=== PATIENT | male | born 1970 | race Caucasian/White ===

== ENCOUNTER 2016-03-09 09:45 | Emergency (ER) | payer SELFPAY ==
[~2016-03-09] VITALS: Ht 165.1 cm; Wt 69.4 kg
[~2016-03-09 09:45] MED LIST: ACETAMINOPHEN-1 EAC1 ORAL; ALBUTEROL SULF8.5 GM INH; ANUSOL HC1 SUPP RECTAL; ANUSOL-HC25 MG RC; ANUSOL-HC25 MG RECTAL; ATARAX25 MG ORAL; AUGMENTIN 875-1 EAC1 ORAL; BACTRIM DS TAB1 EAC1 ORAL; CEPHALEXIN500 MG ORAL; KEFLEX500 MG ORAL; KEFLEX500 MG PO; LEVAQUIN500 MG ORAL; LEVAQUIN500 MG PO; NKM; NORCO 5-325 TA1 EACH ORAL; NORCO 5/3251 TAB ORAL; PERMETHRIN60 GM TOPIC; TRAMADOL HCL50 MG ORAL; VIBRAMYCIN100 MG ORAL
--- NOTE | 2016-03-09 10:23 | Emergency Room Report ---
History of Present Illness General Chief Complaint: General Complaint Source: Patient Present Illness HPI Patient presents with 4 days of leg pain fever and sore throat. He did not get a flu shot this year. He was treated for cellulitis several months ago when his right knee. This is better. Pain in legs is fairly constant. Reported 4/10, aching and burning. Not positional. No swelling. The patient denies any vomiting or diarrhea. He states that liver pain and wants to be checked for hepatitis. No dyspnea, cough, pleuritic chest pain, hemoptysis, rashes, dysuria. States works 17 hour jobs. 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 Nursing Documentation: PMH: Agreed, PSxH: Agreed Nursing Documentation-PMH Hx Asthma: Yes Hx Gastrointestinal Problems: Yes - HERNIA REPAIR 2012 Review of Systems All Other Systems: negative except mentioned in HPI Physical Exam Vital Signs Date Time Temp Pulse Resp B/P Pulse Ox O2 Delivery O2 Flow Rate FiO2 03/09/16 09:51 97.9 76 18 127/84 98 Room Air Sp02 EP Interpretation: reviewed, normal General Appearance: well appearing, no apparent distress, GCS 15 Head: normocephalic Eyes: bilateral eye PERRL, bilateral eye normal inspection ENT: TMs + canals normal, pharyngeal erythema Neck: full range of motion, supple, no meningismus Respiratory: chest non-tender, lungs clear, normal breath sounds Cardiovascular #1: regular rate, rhythm, no edema Cardiovascular #2: 2+ radial (R) Gastrointestinal: normal inspection, normal bowel sounds, non tender - alleges RUQ tenderness, but normal exam, no mass, non-distended Musculoskeletal: back normal, gait/station normal, normal range of motion, no calf tenderness Neurologic: alert, oriented x3 - grossly normal neuro Psychiatric: mood/affect normal Skin: normal inspection, warm/dry Medical Decision Making Diagnostic Impression: Primary Impression: Viral syndrome Additional Impressions: Amphetamine abuse Leg pain Qualified Codes: M79.604 - Pain In Right Leg; M79.605 - Pain In Left Leg ER Course Patient with leg pain and URI. DDX: flu, viral syndrome, bronchitis, rhabdomyolysis, electrolyte abnormality amongst others. Patient evaluated with labs and flu swab. Treatment symptoms while await. Not appear dehydrated. Beyond treatment effectiveness for tamiflu. Flu negative. + tox. States has to do this due to work schedule. Discussed that this contributed to his pain and illness. Sl elevated ALT. Discussed that we are unable to get rapid hepatitis results and need to follow up with own MD. Patient somewhat improved. Stable for outpatient observation and treatment. Laboratory Tests Test 03/09/16 10:24 03/09/16 10:49 Urine Color Pale yellow Urine Appearance Clear Urine pH 8 (4.5-8.0) Urine Specific [place] 1.010 (1.005-1.035) Urine Protein Negative (NEGATIVE) Urine Glucose (UA) Negative (NEGATIVE) Urine Ketones Negative (NEGATIVE) Urine Occult Blood Negative (NEGATIVE) Urine Nitrite Negative (NEGATIVE) Urine Bilirubin Negative (NEGATIVE) Urine Urobilinogen Normal MG/DL (0.0-1.0) Urine Leukocyte Esterase Negative (NEGATIVE) Urine Opiates Screen Negative (NEGATIVE) Urine Barbiturates Screen Negative (NEGATIVE) Phencyclidine (PCP) Screen Negative (NEGATIVE) Urine Amphetamines Screen Positive (NEGATIVE) H Urine Benzodiazepines Screen Negative (NEGATIVE) Urine Cocaine Screen Negative (NEGATIVE) Urine Marijuana (THC) Screen Negative (NEGATIVE) White Blood Count 4.0 K/UL (4.8-10.8) L Red Blood Count 5.47 M/UL (4.70-6.10) Hemoglobin 16.1 G/DL (14.2-18.0) Hematocrit 50.2 % (42.0-52.0) Mean Corpuscular Volume 92 FL (80-99) Mean Corpuscular Hemoglobin 29.4 PG (27.0-31.0) Mean Corpuscular Hemoglobin Concent 32.0 G/DL (32.0-36.0) Red Cell Distribution Width 12.0 % (11.6-14.8) Platelet Count 323 K/UL (150-450) Mean Platelet Volume 5.7 FL (6.5-10.1) L Neutrophils (%) (Auto) % (45.0-75.0) Lymphocytes (%) (Auto) % (20.0-45.0) Monocytes (%) (Auto) % (1.0-10.0) Eosinophils (%) (Auto) % (0.0-3.0) Basophils (%) (Auto) % (0.0-2.0) Differential Total Cells Counted 100 Neutrophils % (Manual) 31 % (45-75) L Lymphocytes % (Manual) 53 % (20-45) H Monocytes % (Manual) 12 % (1-10) H Eosinophils % (Manual) 4 % (0-3) H Basophils % (Manual) 0 % (0-2) Band Neutrophils 0 % (0-8) Platelet Estimate Adequate Platelet Morphology Normal Red Blood Cell Morphology Normal Sodium Level 139 mEQ/L (135-145) Potassium Level 4.4 mEQ/L (3.4-4.9) Chloride Level 97 mEQ/L (98-107) L Carbon Dioxide Level 31 mEQ/L (20-30) H Anion Gap 11 (5-15) Blood Urea Nitrogen 14 mg/dL (7-23) Creatinine 0.9 mg/dL (0.7-1.2) Estimate Glomerular Filtration Rate > 60 mL/min (>60) Glucose Level 72 mg/dL (74-106) L Calcium Level 9.0 mg/dL (8.6-10.2) Total Bilirubin 0.2 mg/dL (0.0-1.2) Aspartate Amino Transferase (AST) 40 U/L (5-40) Alanine Aminotransferase (ALT) 48 U/L (3-41) H Alkaline Phosphatase 85 U/L (40-129) Total Protein 7.2 g/dL (6.6-8.7) Albumin 3.6 g/dL (3.5-5.2) Globulin 3.6 g/dL Albumin/Globulin Ratio 1.0 (1.0-2.7) Lipase 27 U/L (< 60) Microbiology Date/Time Source Procedure Growth Status 03/09/16 10:30 Nasal Nares Influenza Types A,B Antigen (SULMA) - Final Complete Status: improved Disposition: HOME, SELF-CARE Condition: Improved Scripts Acetaminophen (Tylenol) 325 Mg Tablet 650 MG ORAL Q6H Y for Prn Pain/Headache/Temp > 101, #30 TAB 0 Refills Prov: Jim Rey M.D. 03/09/16 Ibuprofen* (MOTRIN*) 600 Mg Tablet 600 MG ORAL Q6H Y for For Pain, #20 TAB Prov: Jim Rey M.D. 03/09/16 Ondansetron Odt* (ZOFRAN ODT*) 4 Mg Tab.rapdis 4 MG ORAL Q8H Y for Nausea & Vomiting, #6 TAB 0 Refills Prov: Jim Rey M.D. 03/09/16 Jim Rey M.D. Mar 09, 2016 10:23
[2016-03-09] MEDS ORDERED: Ketorolac 30mg Inj IV ONE (10:30)
[2016-03-09 10:46] LABS: APPEARANCE,URINE CLEAR; KETONES,URINE NEGATIVE (NEGATIVE); LEUKOCYTE ESTERASE ,URINE NEGATIVE (NEGATIVE); NITRITE,URINE NEGATIVE (NEGATIVE); PH,URINE 8 (4.5-8.0); PROTEIN,URINE NEGATIVE (NEGATIVE); UROBILINOGEN,URINE NORMAL MG/DL (0.0-1.0)
[2016-03-09 11:20] LABS: MEAN CORPUSCULAR HEMOGLOBIN 29.4 PG (27.0-31.0); MEAN CORPUSCULAR VOLUME 92 FL (80-99); MEAN PLATELET VOLUME 5.7 FL (6.5-10.1); PLATELET COUNT 323 K/UL (150-450); RED BLOOD COUNT 5.47 M/UL (4.70-6.10)
[2016-03-09 11:29] LABS: ALANINE AMINOTRANSFERASE 48 U/L (3-41); ANION GAP 11 (5-15); ASPARTATE AMINO TRANSFERASE 40 U/L (5-40); CARBON DIOXIDE 31 mEQ/L (20-30); CHLORIDE 97 mEQ/L (98-107); CREATININE 0.9 mg/dL (0.7-1.2); GLOMERULAR FILTRATION RATE > 60 mL/min (>60); HEMOLYSIS 10; LIPASE 27 U/L (< 60); POTASSIUM 4.4 mEQ/L (3.4-4.9); SODIUM 139 mEQ/L (135-145); TOTAL PROTEIN 7.2 g/dL (6.6-8.7)
[2016-03-09 12:06] VITALS: BP 125/71
[2016-03-09 12:32] LABS: BAND NEUTROPHILS % (MANUAL) 0 % (0-8); BASOPHILS % (MANUAL) 0 % (0-2); EOSINOPHILS % (MANUAL) 4 % (0-3); LYMPHOCYTES % (MANUAL) 53 % (20-45); NEUTROPHILS % (MANUAL) 31 % (45-75); PLATELET ESTIMATE ADEQUATE; PLATELET MORPHOLOGY NORMAL; TOTAL CELLS COUNTED 100
[2016-03-09] MEDS ORDERED: ZOFRAN ODT4 MG ORAL (12:39)
[2016-03-09] MEDS ORDERED: TYLENOL325 MG ORAL (12:39)
[2016-03-09] MEDS ORDERED: IBUPROFEN600 MG ORAL (12:39)
[2016-03-09 12:47] VITALS: BP 125/71
== END 2016-03-09 12:50 | disposition home or self-care (01) ==
LOC: EMR 11:00
DX: B34.9 Viral infection, unspecified (principal); M79.604 Pain in right leg; F15.10 Other stimulant abuse, uncomplicated; J45.909 Unspecified asthma, uncomplicated
CPT/HCPCS: 36415; 80053; 80300; 81003; 83690; 85007; 85025; 86710; 96361; 96374; 99284; J1885

== ENCOUNTER 2016-05-19 07:47 | Emergency (ER) | payer SELFPAY ==
[~2016-05-19] VITALS: Ht 162.6 cm; Wt 68.9 kg
[~2016-05-19 07:47] MED LIST changes: +IBUPROFEN600 MG ORAL; +TYLENOL325 MG ORAL; +ZOFRAN ODT4 MG ORAL
[2016-05-19] MEDS ORDERED: Ketorolac 30mg Inj IV ONE (08:15)
[2016-05-19 08:38] VITALS: BP 130/74
[2016-05-19 08:40] LABS: BASOPHILS % (AUTO) 1.5 % (0.0-2.0); EOSINOPHILS % (AUTO) 3.5 % (0.0-3.0); LYMPHOCYTES % (AUTO) 29.8 % (20.0-45.0); MEAN CORPUSCULAR HGB CONC 32.7 G/DL (32.0-36.0); MEAN CORPUSCULAR VOLUME 89 FL (80-99); MEAN PLATELET VOLUME 6.1 FL (6.5-10.1); NEUTROPHILS % (AUTO) 51.2 % (45.0-75.0); PLATELET COUNT 289 K/UL (150-450); RED BLOOD COUNT 5.54 M/UL (4.70-6.10); RED CELL DISTRIBUTION WIDTH 12.5 % (11.6-14.8); WHITE BLOOD COUNT 6.3 K/UL (4.8-10.8)
[2016-05-19 08:56] LABS: ALANINE AMINOTRANSFERASE 22 U/L (3-41); ALBUMIN/GLOBULIN RATIO 1.3 (1.0-2.7); ANION GAP 15 (5-15); ASPARTATE AMINO TRANSFERASE 28 U/L (5-40); CALCIUM 9.7 mg/dL (8.6-10.2); CARBON DIOXIDE 26 mEQ/L (20-30); CHLORIDE 98 mEQ/L (98-107); CREATININE 1.2 mg/dL (0.7-1.2); GLOMERULAR FILTRATION RATE > 60 mL/min (>60); HEMOLYSIS 8; POTASSIUM 4.2 mEQ/L (3.4-4.9); SODIUM 139 mEQ/L (135-145); TOTAL PROTEIN 7.2 g/dL (6.6-8.7)
[2016-05-19 09:59] LABS: ERYTHROCYTE SEDIMENTATION RATE 12 MM/HR (0-15)
--- NOTE | 2016-05-19 10:01 | Diagnostic Imaging Report ---
Indications: PAIN Technique: Two views of the right femur Comparison: None Findings: No acute fractures. No dislocations. Normal mineralization. Impression: Negative
[2016-05-19 10:11] VITALS: BP 124/71
[2016-05-19 10:12] VITALS: BP 130/74
[2016-05-19] MEDS ORDERED: TRAMADOL HCL50 MG ORAL (10:16)
--- NOTE | 2016-05-19 12:18 | Diagnostic Imaging Report ---
Indications: PAIN Technique: Three views of the right knee Comparison: None Findings: No acute fractures. No dislocations. Joint spaces are preserved. No radiopaque foreign body. Normal mineralization. Impression: No acute process
--- NOTE | 2016-05-23 16:06 | Emergency Room Report ---
History of Present Illness General Chief Complaint: Pain Source: Patient Present Illness HPI 45-year-old male presents ED complaining of right knee pain. States she's had this pain for last 6 months. Patient was here on last visit and was noted have cellulitis of the knee. Was discharged on antibiotics. Patient states the infection is still there. Notes 7/10 pain to the right knee. Throbbing. Worse with walking. He still able to bear weight. Denies any fevers or chills. Notes full range of motion the knee. No other aggravating or relieving factors. Denies any other associated Allergies: Coded Allergies: No Known Allergies (Unverified , 03/09/16) Patient History Past Medical History: none Past Surgical History: none Pertinent Family History: none Social History: Denies: alcohol use, drug use, smoking Immunizations: UTD Reviewed Nursing Documentation: PMH: Agreed, PSxH: Agreed Nursing Documentation-PMH Hx Asthma: Yes Hx Gastrointestinal Problems: Yes - hernia Review of Systems All Other Systems: negative except mentioned in HPI Physical Exam Vital Signs Date Time Temp Pulse Resp B/P Pulse Ox O2 Delivery O2 Flow Rate FiO2 05/19/16 07:51 97.9 86 12 130/74 100 Room Air Sp02 EP Interpretation: reviewed, normal General Appearance: no apparent distress, alert, GCS 15, non-toxic Head: normocephalic, atraumatic Eyes: bilateral eye PERRL, bilateral eye normal inspection ENT: hearing grossly normal, normal pharynx, no angioedema, normal voice Neck: full range of motion, supple/symm/no masses Respiratory: chest non-tender, lungs clear, normal breath sounds, speaking full sentences Cardiovascular #1: regular rate, rhythm, no edema Cardiovascular #2: 2+ carotid (R), 2+ carotid (L), 2+ radial (R), 2+ radial (L) , 2+ dorsalis pedis (R), 2+ dorsalis pedis (L) Gastrointestinal: normal bowel sounds, non tender, soft, non-distended, no guarding, no rebound Rectal: deferred Genitourinary: normal inspection, no CVA tenderness Musculoskeletal: back normal, gait/station normal, normal range of motion, non- tender Neurologic: alert, oriented x3, responsive, motor strength/tone normal, sensory intact, speech normal Psychiatric: judgement/insight normal, memory normal, mood/affect normal, no suicidal/homicidal ideation Reflexes: 3+ bicep (R), 3+ bicep (L), 3+ tricep (R), 3+ tricep (L), 3+ knee (R) , 3+ knee (L) Skin: normal color, no rash, warm/dry, well hydrated Lymphatic: no adenopathy Medical Decision Making Diagnostic Impression: Primary Impression: Knee pain Qualified Codes: M25.561 - Pain in right knee; G89.29 - Other chronic pain Additional Impression: Drug-seeking behavior ER Course Hospital Course 45-year-old male presents ED complaining of right knee pain x4 months. Differential diagnosis includes-arthritis, fracture, dislocation, cellulitis Clinical course Patient placed on stretcher. After initial history and physical I ordered labs , pain medications and x-rays Labs - no leukocytosis, electrolyts ok, ESR ok X-rays unremarkable when discussing the findings with the patient girlfriend is at bedside. she insists that there is an infection inside the knee. I explained to the patient that there is no evidence of joint infection. There is full range of motion, no swelling, no pain to exam. Patient is able to bear weight. Patient was seen in January for cellulitis of the knee. Superficial. Patient also had labs at that time which showed normal ESR when I explain the findings are normal at this time and the patient became very agitated and started screaming. I explained to both that if he continued behaved in such a manner they will be removed from the ER I agreed to provide patient pain medication but recommended orthopedic followup. Patient declined crutches and knee brace I wrote prescription for tramadol for pain. Girlfriend and patient will consist that this is not strong enough and the need [place] Diagnosis - knee pain, drug-seeking behavior Stable and discharged to home with Rx Tramadol. Followup with PMD. Return to ED if symptoms recur or worsen Labs Test 05/19/16 08:20 White Blood Count 6.3 K/UL (4.8-10.8) Red Blood Count 5.54 M/UL (4.70-6.10) Hemoglobin 16.1 G/DL (14.2-18.0) Hematocrit 49.1 % (42.0-52.0) Mean Corpuscular Volume 89 FL (80-99) Mean Corpuscular Hemoglobin 29.0 PG (27.0-31.0) Mean Corpuscular Hemoglobin Concent 32.7 G/DL (32.0-36.0) Red Cell Distribution Width 12.5 % (11.6-14.8) Platelet Count 289 K/UL (150-450) Mean Platelet Volume 6.1 FL (6.5-10.1) Neutrophils (%) (Auto) 51.2 % (45.0-75.0) Lymphocytes (%) (Auto) 29.8 % (20.0-45.0) Monocytes (%) (Auto) 14.0 % (1.0-10.0) Eosinophils (%) (Auto) 3.5 % (0.0-3.0) Basophils (%) (Auto) 1.5 % (0.0-2.0) Erythrocyte Sedimentation Rate 12 MM/HR (0-15) Sodium Level 139 mEQ/L (135-145) Potassium Level 4.2 mEQ/L (3.4-4.9) Chloride Level 98 mEQ/L (98-107) Carbon Dioxide Level 26 mEQ/L (20-30) Anion Gap 15 (5-15) Blood Urea Nitrogen 18 mg/dL (7-23) Creatinine 1.2 mg/dL (0.7-1.2) Estimat Glomerular Filtration Rate > 60 mL/min (>60) Glucose Level 86 mg/dL (74-106) Calcium Level 9.7 mg/dL (8.6-10.2) Total Bilirubin 0.3 mg/dL (0.0-1.2) Aspartate Amino Transf (AST/SGOT) 28 U/L (5-40) Alanine Aminotransferase (ALT/SGPT) 22 U/L (3-41) Alkaline Phosphatase 80 U/L (40-129) Total Protein 7.2 g/dL (6.6-8.7) Albumin 4.1 g/dL (3.5-5.2) Globulin 3.1 g/dL Albumin/Globulin Ratio 1.3 (1.0-2.7) Other X-Ray Diagnostic Results Other X-Ray Diagnostic Results : X-Ray Ordered: R femur, R knee EP Interpretation: Yes Findings: no fractures, no dislocation, no soft tissue swelling Number of Views: 3 Other Impression Right knee-No fracture, no dislocation, no soft tissue swelling Right femur-No fracture, no dislocation, no soft tissue swelling Last Vital Signs Date Time Temp Pulse Resp B/P Pulse Ox O2 Delivery O2 Flow Rate FiO2 05/19/16 10:12 97.9 84 12 130/74 100 Room Air Status: improved Disposition: HOME, SELF-CARE Condition: Stable Scripts Tramadol Hcl* (ULTRAM*) 50 Mg Tablet 50 MG ORAL Q6H Y for For Pain, #30 TAB 0 Refills Prov: CELSO CABRERA M.D. 05/19/16 Referrals: ANJELICA ESPINOSA DAVID M.D. NOT CHOSEN RAHUL/,REFERRING (PCP) Patient Instructions: Knee Pain, [id number] CELSO CABRERA M.D. May 23, 2016 16:06
== END 2016-05-19 10:20 | disposition home or self-care (01) ==
LOC: EMR 08:26
DX: M25.561 Pain in right knee (principal); G89.29 Other chronic pain; Z76.5 Malingerer [conscious simulation]; J45.909 Unspecified asthma, uncomplicated
CPT/HCPCS: 36415; 73552; 73562; 80053; 85025; 85651; 96374; 96375; 99284; J1885

== ENCOUNTER 2017-04-10 14:30 | Emergency (ER) | payer SELFPAY ==
[~2017-04-10] VITALS: Ht 165.1 cm; Wt 66.2 kg
[2017-04-10] MEDS ORDERED: Lidocaine 1% MPF 10mg/ml 5ml INJ ONE (15:15)
--- NOTE | 2017-04-10 15:29 | Emergency Room Report ---
History of Present Illness General Chief Complaint: Male Urogenital Problems Source: Patient Present Illness HPI 46-year-old male presents to the emergency department complaining of 3/10 in severity dysuria x3 days. Patient reports a few encounters of unprotected intercourse. Patient states he isn't quite sure if he has penile discharge or not. He denies testicular pain or swelling. He denies fevers, chills, swollen tender lymph nodes, joint pain or rashes. Denies CP, Palpitations, LOC, AMS, dizziness, Changes in Vision, Sensation, paresthesias, or a sudden severe headache.Also is reporting hx of hemorrhoids and is requesting rectal suppository refill. Allergies: Coded Allergies: No Known Allergies (Unverified , 03/09/16) Patient History Past Medical History: see triage record Past Surgical History: none Pertinent Family History: none Reviewed Nursing Documentation: PMH: Agreed, PSxH: Agreed Nursing Documentation-PMH Hx Asthma: Yes Review of Systems All Other Systems: negative except mentioned in HPI Physical Exam Vital Signs Date Time Temp Pulse Resp B/P (MAP) Pulse Ox O2 Delivery O2 Flow Rate FiO2 04/10/17 14:43 98.1 86 16 130/88 97 Room Air Sp02 EP Interpretation: reviewed, normal General Appearance: no apparent distress, alert, GCS 15, non-toxic Head: normocephalic, atraumatic ENT: hearing grossly normal, normal voice Neck: full range of motion Respiratory: lungs clear, normal breath sounds, speaking full sentences Cardiovascular #1: regular rate, rhythm Gastrointestinal: non tender, soft Rectal: deferred Genitourinary: normal inspection, no CVA tenderness, other - no inguinal LAD Musculoskeletal: back normal, gait/station normal, normal range of motion, non- tender Neurologic: alert, oriented x3, responsive, motor strength/tone normal, sensory intact, speech normal, grossly normal Psychiatric: judgement/insight normal Skin: normal color, no rash, warm/dry, well hydrated Lymphatic: no adenopathy Medical Decision Making PA Attestation Dr. holman is my supervising Physician whom patient management has been discussed with. Diagnostic Impression: Primary Impression: Urethritis ER Course 46-year-old male presents to the emergency department complaining of 3/10 in severity dysuria x3 days. Patient reports a few encounters of unprotected intercourse. Patient states he isn't quite sure if he has penile discharge or not. He denies testicular pain or swelling. He denies fevers, chills, swollen tender lymph nodes, joint pain or rashes. Denies CP, Palpitations, LOC, AMS, dizziness, Changes in Vision, Sensation, paresthesias, or a sudden severe headache.Also is reporting hx of hemorrhoids and is requesting rectal suppository refill. Ddx considered but are not limited to UTi , Urethritis, LGV, STI, Stone, Cystitis, prostatitis Vital signs: are WNL, pt. is afebrile H&PE are most consistent with Urethritis ORDERS: - UA : bacteria present no significant elevation of inflammatory markers. ---Pt. treated Prophylactically for G & C. ED INTERVENTIONS: -250mg Rocephin IM DISCHARGE: At this time pt. is stable for d/c to home. Will provide printed patient care instructions, and any necessary prescriptions. Care plan and follow up instructions have been discussed with the patient prior to discharge. Labs Test 04/10/17 15:12 Urine Color Pale yellow Urine Appearance Clear Urine pH 6.5 (4.5-8.0) Urine Specific [place] 1.015 (1.005-1.035) Urine Protein Negative (NEGATIVE) Urine Glucose (UA) Negative (NEGATIVE) Urine Ketones Negative (NEGATIVE) Urine Occult Blood Negative (NEGATIVE) Urine Nitrite Negative (NEGATIVE) Urine Bilirubin Negative (NEGATIVE) Urine Urobilinogen 1 MG/DL (0.0-1.0) Urine Leukocyte Esterase 1+ (NEGATIVE) Urine RBC 0-2 /HPF (0 - 0) Urine WBC 2-4 /HPF (0 - 0) Urine Squamous Epithelial Cells None /LPF (NONE/OCC) Urine Bacteria Few /HPF (NONE) Last Vital Signs Date Time Temp Pulse Resp B/P (MAP) Pulse Ox O2 Delivery O2 Flow Rate FiO2 04/10/17 14:43 98.1 86 16 130/88 97 Room Air Disposition: HOME, SELF-CARE Condition: Stable Scripts Hydrocortisone Acetate* (ANUSOL-HC*) 25 Mg Supp.rect 1 SUPP RECTAL TWICE A DAY, #20 SUPP 1 Refill Prov: Rebecca Sandoval P.A. 04/10/17 Doxycycline Hyclate* (VIBRAMYCIN*) 100 Mg Capsule 100 MG ORAL EVERY 12 HOURS for 7 Days, #14 CAP 0 Refills Prov: Rebecca Sandoval 04/10/17 Phenazopyridine Hcl* (PYRIDIUM*) 200 Mg Tablet 200 MG ORAL THREE TIMES A DAY for 3 Days, #9 TAB 0 Refills Prov: Rebecca Sandoval 04/10/17 Patient Instructions: Urethritis, Adult Additional Instructions: Take medications as directed. Follow up with a Primary Care Provider in 3-5 days, even if your symptoms have resolved. --Please review list of primary care clinics, if you do not already have a primary care provider Return sooner to ED if new symptoms occur, or current symptoms become worse. Pyridium will cause your urine to change color (Red/[place]), this is a normal side effect of the medication. - Please note that this Emergency Department Report was dictated using [employer] press set up operator radial technology software, occasionally this can lead to erroneous entry secondary to interpretation by the dictation equipment. Rebecca Sandoval Apr 10, 2017 15:29
[2017-04-10] MEDS ORDERED: Phenazopyridine 200mg tab ORAL ONE (15:30)
[2017-04-10 15:37] LABS: APPEARANCE,URINE CLEAR; BILIRUBIN, URINE NEGATIVE (NEGATIVE); COLOR,URINE PALE YELLOW; GLUCOSE, URINE (UA) NEGATIVE (NEGATIVE); KETONES,URINE NEGATIVE (NEGATIVE); LEUKOCYTE ESTERASE ,URINE 1+ (NEGATIVE); NITRITE,URINE NEGATIVE (NEGATIVE); PH,URINE 6.5 (4.5-8.0); PROTEIN,URINE NEGATIVE (NEGATIVE); UROBILINOGEN,URINE 1 MG/DL (0.0-1.0)
[2017-04-10] MEDS ORDERED: VIBRAMYCIN100 MG ORAL (16:15)
[2017-04-10] MEDS ORDERED: PHENAZOPYRIDIN200 MG ORAL (16:15)
[2017-04-10] MEDS ORDERED: ANUSOL-HC25 MG RECTAL (16:21)
[2017-04-10 16:27] VITALS: BP 130/88
[2017-04-10 16:29] VITALS: BP 130/88
== END 2017-04-10 16:30 | disposition home or self-care (01) ==
LOC: EMR 16:20
DX: N34.2 Other urethritis (principal); J45.909 Unspecified asthma, uncomplicated
CPT/HCPCS: 81003; 96372; 99283; J0696

== ENCOUNTER 2017-05-18 03:41 | Emergency (ER) | payer SELFPAY ==
[~2017-05-18] VITALS: Ht 165.1 cm; Wt 68.9 kg
[~2017-05-18 03:41] MED LIST changes: +PHENAZOPYRIDIN200 MG ORAL
--- NOTE | 2017-05-18 04:04 | Emergency Room Report ---
History of Present Illness General Chief Complaint: Upper Respiratory Illness Source: Patient Present Illness HPI Patient is a 46-year-old male who presented after increased difficulty breathing and cough. Patient gradual onset of symptoms over the past 2 days. Patient stated he had fever which had resolved. He denied any vomiting. He reported having some nonproductive cough. Allergies: Coded Allergies: No Known Allergies (Unverified , 03/09/16) Patient History Past Medical History: see triage record Reviewed Nursing Documentation: PMH: Agreed, PSxH: Agreed Nursing Documentation-PMH Hx Asthma: Yes Review of Systems All Other Systems: negative except mentioned in HPI Physical Exam Vital Signs Date Time Temp Pulse Resp B/P (MAP) Pulse Ox O2 Delivery O2 Flow Rate FiO2 05/18/17 03:55 98.2 82 18 114/72 96 Room Air 98.2 General Appearance: well appearing, no apparent distress, alert, GCS 15, non- toxic Head: normocephalic, atraumatic ENT: hearing grossly normal, normal voice, pharyngeal erythema Neck: full range of motion, supple Respiratory: no rhonchi, no respiratory distress, speaking full sentences, wheezing Musculoskeletal: no calf tenderness Neurologic: normal gait Psychiatric: mood/affect normal Skin: no rash Medical Decision Making Diagnostic Impression: Primary Impression: URI (upper respiratory infection) ER Course Patient presented for cough. Differential diagnosis included but was not limited to bronchitis, pneumonia, pulmonary embolism, pericarditis, asthma, foreign body. Patient has a benign exam and does not appear to require any further imaging or laboratory testing at this time. Chest x-ray one view interpreted by me showed normal cardiac size without evident infiltrate. Patient was given breathing treatment with some improvement. He was given prescription for cough medications.The patient is advised to follow up with primary care doctor in 1-2 days. Patient is advised to return if any worsening condition or if any changes in status that are concerning. This report is dictated with [employer] rail car loader software which may occasionally lead to discrepancies related to use of this software. Last Vital Signs Date Time Temp Pulse Resp B/P (MAP) Pulse Ox O2 Delivery O2 Flow Rate FiO2 05/18/17 03:55 98.2 82 18 114/72 96 Room Air 98.2 Status: improved Disposition: HOME, SELF-CARE Condition: Stable Scripts Albuterol Sulfate* (ALBUTEROL SULFATE MDI*) 8.5 Gm Hfa.aer.ad 2 PUFF INH Q4H Y for cough/wheezing, #1 EA 0 Refills Prov: Doni Resendiz 05/18/17 Guaifenesin/Dextromethorphan (Guaifenesin Dm Syrup) 5 Ml Syrup 1 TSP ORAL Q8H, #118 ML 0 Refills Prov: Doni Resendiz 05/18/17 Doni Resendiz May 18, 2017 04:04
[2017-05-18 04:07] VITALS: BP 114/72
[2017-05-18] MEDS: Albuterol/Ipratropium 3ml neb HHN ONE (04:13)
[2017-05-18] MEDS ORDERED: GUAIFENESIN DM118 M1 ORAL (04:37)
[2017-05-18] MEDS ORDERED: ALBUTEROL SULF8.5 GM INH (04:39)
[2017-05-18 04:40] VITALS: BP 117/65
[2017-05-18 04:45] VITALS: BP 109/73
[2017-05-18 04:50] VITALS: BP 111/63
[2017-05-18 04:51] VITALS: BP 111/63
--- NOTE | 2017-05-18 09:37 | Diagnostic Imaging Report ---
Indication: Shortness of breath Technique: One view of the chest Comparison: 04/28/2011 Findings: Lungs and pleural spaces are clear. Heart size is normal. No significant change Impression: No acute process
== END 2017-05-18 04:51 | disposition home or self-care (01) ==
LOC: EMR 04:03
DX: J06.9 Acute upper respiratory infection, unspecified (principal); J45.909 Unspecified asthma, uncomplicated
CPT/HCPCS: 71045; 94640; 99284; J7620

== ENCOUNTER 2017-06-30 20:44 | Emergency (ER) | payer SELFPAY ==
[~2017-06-30] VITALS: Ht 165.1 cm; Wt 66.7 kg
[~2017-06-30 20:44] MED LIST changes: +GUAIFENESIN DM118 M1 ORAL
[2017-06-30 21:17] VITALS: BP 114/68
[2017-06-30] MEDS ORDERED: ACYCLOVIR400 MG ORAL (21:43)
[2017-06-30] MEDS ORDERED: PHENAZOPYRIDIN200 MG ORAL (21:43)
[2017-06-30] MEDS ORDERED: DOXYCYCLINE MO100 MG ORAL (21:43)
[2017-06-30] MEDS ORDERED: Lidocaine 1% MPF 10mg/ml 5ml INJ ONE (21:45)
[2017-06-30] MEDS ORDERED: Phenazopyridine 200mg tab ORAL ONE (21:45)
[2017-06-30 22:10] VITALS: BP 114/68
--- NOTE | 2017-07-01 08:01 | Emergency Room Report ---
History of Present Illness General Chief Complaint: Male Urogenital Problems Source: Patient Present Illness HPI Patient is a 47-year-old male presented after increased dysuria. Patient reported having increased symptoms for the past 2 days. Patient denies any fever. He denies any recent trauma. He denied any hematuria. Patient had prior history of similar symptoms. Allergies: Coded Allergies: No Known Allergies (Unverified , 03/09/16) Patient History Past Medical History: see triage record Reviewed Nursing Documentation: PMH: Agreed; PSxH: Agreed Nursing Documentation-PMH Past Medical History: No History, Except For Hx Asthma: Yes Review of Systems All Other Systems: negative except mentioned in HPI Physical Exam Vital Signs Date Time Temp Pulse Resp B/P (MAP) Pulse Ox O2 Delivery O2 Flow Rate FiO2 06/30/17 21:14 97.9 98 16 114/68 96 Room Air 97.9 General Appearance: well appearing, no apparent distress, alert, GCS 15 Head: normocephalic, atraumatic ENT: hearing grossly normal, normal voice Neck: full range of motion, supple Respiratory: no respiratory distress, speaking full sentences Gastrointestinal: normal inspection, non tender, soft Genitourinary: other - penile urethra discharge without skin lesions or blistering Musculoskeletal: no calf tenderness Neurologic: normal gait Psychiatric: mood/affect normal Skin: no rash Medical Decision Making Diagnostic Impression: Primary Impression: Urethritis ER Course Patient presented for dysuria. Differential diagnosis included was not limited to appendicitis, urinary tract infection, pelvic inflammatory disease, urethritis, herpes among others. Patient has a benign exam and does not appear to require any further imaging or laboratory testing at this time. The patient was noted to have evidence of urethritis on exam. The patient was empirically treated for STI and herpes. The patient was advised outpatient a STI testing. The patient is advised to follow up with primary care doctor in 1-2 days. Patient is advised to return if any worsening condition or if any changes in status that are concerning. This report is dictated with [employer] singeing torch operator software which may occasionally lead to discrepancies related to use of this software. Last Vital Signs Date Time Temp Pulse Resp B/P (MAP) Pulse Ox O2 Delivery O2 Flow Rate FiO2 06/30/17 22:10 97.9 98 16 114/68 96 Room Air 97.9 Status: improved Disposition: HOME, SELF-CARE Condition: Stable Scripts Acyclovir* (ACYCLOVIR*) 400 Mg Tablet 400 MG ORAL FIVE TIMES A DAY, #35 TAB Prov: Doni Resendiz 06/30/17 Phenazopyridine Hcl* (PYRIDIUM*) 200 Mg Tablet 200 MG ORAL THREE TIMES A DAY, #14 TAB 0 Refills Prov: Doni Resendiz 06/30/17 Doxycycline Monohydrate* (DOXYCYCLINE MONOHYDRATE*) 100 Mg Capsule 100 MG ORAL Q12H, #14 CAP 0 Refills Prov: Doni Resendiz 06/30/17 Referrals: NOT CHOSEN [facility]/,REFERRING (PCP) Patient Instructions: Urethritis, Adult Doni Resendiz Jul 01, 2017 08:01
== END 2017-06-30 22:10 | disposition home or self-care (01) ==
LOC: EMR 22:10
DX: N34.2 Other urethritis (principal); J45.909 Unspecified asthma, uncomplicated
CPT/HCPCS: 96372; 99284; J0696

== ENCOUNTER 2017-08-16 15:43 | Emergency (ER) | payer SELFPAY ==
[~2017-08-16] VITALS: Ht 165.1 cm; Wt 69.4 kg
[~2017-08-16 15:43] MED LIST changes: +ACYCLOVIR400 MG ORAL; +DOXYCYCLINE MO100 MG ORAL
[2017-08-16] MEDS ORDERED: NKM (16:08)
--- NOTE | 2017-08-16 16:41 | Emergency Room Report ---
History of Present Illness General Chief Complaint: Skin Rash/Abscess Source: Patient Present Illness HPI 47 YO Male presents to the ED c/o pain, swelling, and erythema of right side of his face. Patient reports that he was able to drain some discharge/fluid several days ago however he feels that this is progressing and he does not want to get worse. Patient denies fevers, chills. He states that he noticed a small bump after shaving however he states he was using a brand-new razor. Denies CP, Palpitations, LOC, AMS, dizziness, Changes in Vision, Sensation, paresthesias, or a sudden severe headache. Denies lesions/rashes elsewhere on the body. Denies new medications or body washes or creams. Denies swelling of the lips, tongue , throat or airway. Denies wheezing, or shortness of breath. Denies recent travel, recent illness or ill contacts. denies blisters, oral lesions, or sloughing of the skin. Allergies: Coded Allergies: No Known Allergies (Unverified , 03/09/16) Patient History Past Medical History: see triage record Past Surgical History: none Pertinent Family History: none Reviewed Nursing Documentation: PMH: Agreed; PSxH: Agreed Nursing Documentation-PMH Hx Asthma: Yes Review of Systems All Other Systems: negative except mentioned in HPI Physical Exam Vital Signs Date Time Temp Pulse Resp B/P (MAP) Pulse Ox O2 Delivery O2 Flow Rate FiO2 08/16/17 16:06 98.1 79 16 127/83 96 Room Air 98.1 Sp02 EP Interpretation: reviewed, normal General Appearance: no apparent distress, alert, GCS 15, non-toxic Head: normocephalic, atraumatic, other - 1cm abscess to the right cheek, mild erythema noted, no crusting, no blisters or vesicles. palpated to be well circumscribed and freely mobile, no obvious fluctuance. ENT: hearing grossly normal, normal voice Neck: full range of motion Respiratory: lungs clear, normal breath sounds, speaking full sentences Cardiovascular #1: regular rate, rhythm Musculoskeletal: back normal, gait/station normal, normal range of motion, non- tender Neurologic: alert, oriented x3, responsive, motor strength/tone normal, sensory intact, speech normal, grossly normal Psychiatric: judgement/insight normal Skin: normal color, no rash, warm/dry, well hydrated, other - 1cm abscess to the right cheek, mild erythema noted, no crusting, no blisters or vesicles. Lymphatic: no adenopathy Procedures Incision and Drainage Incision and Drainage : Consent: Verbal Site: right side of cheek Blade Size: 27G needle I & D Procedure: betadine prep Wound Location: face Wound's Depth, Shape: superficial Wound Length (cm): 0 Wound Explored: unable to aspirate fluid or pus. Anesthesia: Lidocaine w/ Epi Volume Anesthetic (ccs): 1 Sling Applied?: No Patient Tolerated: Well Complications: None Progress Needle aspiration was attempted due to location involved in an attempt to minimize scaring. Medical Decision Making PA Attestation Dr. Miguel is my supervising Physician whom patient management has been discussed with. Diagnostic Impression: Primary Impression: Cyst of face Additional Impression: Abscess ER Course 47 YO Male presents to the ED c/o pain, swelling, and erythema of right side of his face. Patient reports that he was able to drain some discharge/fluid several days ago however he feels that this is progressing and he does not want to get worse. Patient denies fevers, chills. He states that he noticed a small bump after shaving however he states he was using a brand-new razor. Denies CP, Palpitations, LOC, AMS, dizziness, Changes in Vision, Sensation, paresthesias, or a sudden severe headache. Denies lesions/rashes elsewhere on the body. Denies new medications or body washes or creams. Denies swelling of the lips, tongue , throat or airway. Denies wheezing, or shortness of breath. Denies recent travel, recent illness or ill contacts. denies blisters, oral lesions, or sloughing of the skin. Ddx considered but are not limited to cellulitis, abscess, cystic acne, necrotizing fasciitis, insect bite. Vital signs: are WNL, pt. is afebrile H&PE are most consistent with 1cm abscess to the right cheek, mild erythema noted, no crusting, no blisters or vesicles. ORDERS: none required at this time, the diagnosis is clinical ED INTERVENTIONS: - Needle Aspiration I discussed with this patient that unable to aspirate any past or fluid at this time. I do not recommend full incision and drainage using scalpel at this time due to cosmetic side effects given risk-benefit evaluation. Discussed with this patient that judging by palpation this most likely is a cyst due to being well-circumscribed. 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 DISCHARGE: At this time pt. is stable for d/c to home. Will provide printed patient care instructions, and any necessary prescriptions. Care plan and follow up instructions have been discussed with the patient prior to discharge. Last Vital Signs Date Time Temp Pulse Resp B/P (MAP) Pulse Ox O2 Delivery O2 Flow Rate FiO2 08/16/17 16:06 98.1 79 16 127/83 96 Room Air 98.1 Disposition: HOME, SELF-CARE Condition: Stable Scripts Bacitracin/Polymyxin B Sulfate (BACITRACIN-POLYMYXIN OINTMENT) 28.35 Gm Oint...g. 1 APPLIC TP BID, #28.3 GM Prov: Rebecca Sandoval 08/16/17 Ibuprofen* (MOTRIN*) 400 Mg Tablet 400 MG ORAL THREE TIMES A DAY, #20 TAB 0 Refills Prov: Rebecca Sandoval 08/16/17 Doxycycline Hyclate* (VIBRAMYCIN*) 100 Mg Capsule 100 MG ORAL EVERY 12 HOURS for 7 Days, #14 CAP 0 Refills Prov: Rebecca Sandoval 08/16/17 Referrals: NOT CHOSEN IPA/MD,REFERRING (PCP) Patient Instructions: Abscess Additional Instructions: Take medications as directed. Follow up with a Primary Care Provider in 3-5 days, even if your symptoms have resolved. --Please review list of primary care clinics, if you do not already have a primary care provider Return sooner to ED if new symptoms occur, or current symptoms become worse. - Please note that this Emergency Department Report was dictated using [employer] personnel services director technology software, occasionally this can lead to erroneous entry secondary to interpretation by the dictation equipment. Rebecca Sandoval Aug 16, 2017 16:41
[2017-08-16 16:59] VITALS: BP 127/83
[2017-08-16] MEDS ORDERED: VIBRAMYCIN100 MG ORAL (17:34)
[2017-08-16] MEDS ORDERED: IBUPROFEN400 MG ORAL (17:34)
[2017-08-16] MEDS ORDERED: BACITRACIN-P28.35 GM TP (17:34)
[2017-08-16 17:48] VITALS: BP 127/83
== END 2017-08-16 18:01 | disposition home or self-care (01) ==
LOC: EMR 16:22
DX: L72.8 Other follicular cysts of the skin and subcutaneous tissue (principal); J45.909 Unspecified asthma, uncomplicated
CPT/HCPCS: 10060; 99284

== ENCOUNTER 2017-08-30 16:51 | Emergency (ER) | payer SELFPAY ==
[~2017-08-30] VITALS: Ht 165.1 cm; Wt 67.1 kg
[~2017-08-30 16:51] MED LIST changes: +BACITRACIN-P28.35 GM TP; +IBUPROFEN400 MG ORAL
[2017-08-30 17:03] VITALS: BP 131/83
[2017-08-30] MEDS ORDERED: Norco 5mg/325mg tab ORAL ONE (17:15)
[2017-08-30] MEDS ORDERED: Ketorolac 60mg Inj IM ONE (17:15)
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
[2017-08-30] MEDS ORDERED: NORCO 5-325 TA1 EACH ORAL (18:59)
[2017-08-30 19:25] VITALS: BP 128/75
--- NOTE | 2017-08-31 09:54 | Diagnostic Imaging Report ---
Indication: Neck pain. Technique: Continuous helical imaging of the cervical spine was obtained transaxially from the skull base to the upper thoracic spine. 2-D coronal and sagittal reformatted images were obtained. Automatic Exposure Control was utilized. Total Dose length Product (DLP): 2190.[address] Dose Index Volume (CTDIvol): 70.38,28.19,16.94 mGy Comparison: None Findings: There is no acute fracture or malalignment identified. There is no soft tissue swelling identified. Moderate uncovertebral arthritis is demonstrated at multiple levels. Some of the intervertebral discs show narrowing and osteophytes. Impression: No acute injury Moderate spondylosis The CT scanner at [facility] is accredited by the [employer] and the scans are performed using dose optimization techniques as appropriate to a performed exam including Automatic Exposure control.
--- NOTE | 2017-08-31 10:16 | Diagnostic Imaging Report ---
Indication: Trauma and facial pain. Acute nasal fracture Technique: Continuous helical transaxial imaging of the maxillofacial structures obtained without intravenous contrast administration. Coronal 2-D reformats were also obtained. Study obtained in a Siemens sensation [address] Automatic Exposure Control was utilized. Total Dose length Product (DLP): 2190.[address] Dose Index Volume (CTDIvol): 70.38,28.19,16.94 mGy Comparison: None Findings: There is a comminuted fracture of the nasal bone involving the tip of the nasal bone as well as the left side at the junction of the nasal bone and maxilla. The paranasal sinuses are clear. No other fractures are identified. The orbits appear normal bilaterally. There is no proptosis. Mastoids are clear bilaterally. IMPRESSION: Acute comminuted nasal fracture. [facility] has communicated the preliminary results to the Emergency Department. Their findings are largely concordant with this report. The CT scanner at [facility] is accredited by the [employer] and the scans are performed using dose optimization techniques as appropriate to a performed exam including Automatic Exposure control.
--- NOTE | 2017-08-31 10:17 | Diagnostic Imaging Report ---
Indication: Headache Technique: Contiguous 5 mm thick transaxial imaging of the head obtained in a Siemens Sensation [address] scanner. Soft tissue and bone windows generated. Automatic Exposure Control was utilized. Total Dose length Product (DLP): 2190.[address] Dose Index Volume (CTDIvol): 70.38,28.19,16.94 mGy Comparison: none Findings: The size and configuration of the cortical sulci, basal cisterns, and ventricles are within normal limits for age. There is no mass effect, midline shift, or edema identified. There is no evidence of acute hemorrhage or abnormal intra-axial or extra-axial fluid collections. The bones and soft tissues are unremarkable. Impression: No mass effect, edema or acute bleed. The CT scanner at [facility] is accredited by the [employer] and the scans are performed using dose optimization techniques as appropriate to a performed exam including Automatic Exposure control.
--- NOTE | 2017-08-31 12:00 | Diagnostic Imaging Report ---
Indication: Chest pain Comparison: 05/18/2017 A single view chest radiograph was obtained. Findings: Cardiomediastinal appearance is within normal limits for age. Pulmonary vascularity is appropriate. The diaphragmatic contour is smooth and costophrenic angles are sharp. No pleural effusions are identified. The bones are unremarkable. Impression: No acute findings
== END 2017-08-30 19:25 | disposition home or self-care (01) ==
LOC: EMR 19:05
DX: S02.2XXA Fracture of nasal bones, initial encounter for closed fracture (principal); Y04.2XXA Assault by strike against or bumped into by another person, initial encounter; Y92.89 Other specified places as the place of occurrence of the external cause; J45.909 Unspecified asthma, uncomplicated; M47.812 Spondylosis without myelopathy or radiculopathy, cervical region
CPT/HCPCS: 70450; 70486; 71045; 72125; 96372; 99284

== ENCOUNTER 2017-11-25 09:06 | Emergency (ER) | payer MEDICAID ==
[~2017-11-25] VITALS: Ht 165.1 cm; Wt 70.8 kg
[2017-11-25 09:29] VITALS: BP 136/76
[2017-11-25] MEDS ORDERED: Isovue-300 100ml vial INJ PRN (09:45)
[2017-11-25] MEDS ORDERED: Ketorolac 30mg Inj IV ONE (10:00)
[2017-11-25 10:11] LABS: APPEARANCE,URINE CLEAR; BILIRUBIN, URINE NEGATIVE (NEGATIVE); COLOR,URINE PALE YELLOW; GLUCOSE, URINE (UA) NEGATIVE (NEGATIVE); KETONES,URINE NEGATIVE (NEGATIVE); LEUKOCYTE ESTERASE ,URINE NEGATIVE (NEGATIVE); NITRITE,URINE NEGATIVE (NEGATIVE); PH,URINE 7 (4.5-8.0); PROTEIN,URINE 1+ (NEGATIVE); UROBILINOGEN,URINE NORMAL MG/DL (0.0-1.0)
--- NOTE | 2017-11-25 10:13 | Emergency Room Report ---
History of Present Illness General Chief Complaint: Abdominal Pain Source: Patient Present Illness HPI This patient complains of left lower quadrant abdominal pain. He was seen at [facility] last week for the same symptoms. He states he was told he had a kidney infection and was placed on antibiotics. He states that his pain continues. He states that he has not had any improvement in his pain. He also has urinary frequency. He denies fever or chills. He has had nausea and vomiting. He denies diarrhea. He has no other complaints. Allergies: Coded Allergies: No Known Allergies (Unverified , 03/09/16) Patient History Past Medical History: see triage record, old chart reviewed, HTN, asthma Social History: Reports: drug use - intermittent THC and stimulants; Denies: smoking, alcohol use Reviewed Nursing Documentation: PMH: Agreed; PSxH: Agreed Nursing Documentation-PMH Past Medical History: No History, Except For Hx Asthma: Yes Review of Systems All Other Systems: negative except mentioned in HPI Physical Exam Vital Signs Date Time Temp Pulse Resp B/P (MAP) Pulse Ox O2 Delivery O2 Flow Rate FiO2 11/25/17 09:22 97.4 106 18 136/76 98 Room Air 97.3 Sp02 EP Interpretation: reviewed, normal General Appearance: no apparent distress, alert, GCS 15, non-toxic Head: normocephalic, atraumatic Eyes: bilateral eye normal inspection, bilateral eye PERRL ENT: hearing grossly normal, normal pharynx, no angioedema, normal voice Neck: full range of motion, supple/symm/no masses Respiratory: chest non-tender, lungs clear, normal breath sounds, no respiratory distress, no retraction, no accessory muscle use, speaking full sentences Cardiovascular #1: regular rate, rhythm, no edema Gastrointestinal: normal bowel sounds, soft, non-distended, no guarding, no rebound, tenderness - TTP in the LLQ Rectal: deferred Musculoskeletal: back normal, gait/station normal, normal range of motion, non- tender Neurologic: alert, oriented x3, responsive, motor strength/tone normal, sensory intact, speech normal Psychiatric: judgement/insight normal, memory normal, mood/affect normal, no suicidal/homicidal ideation Skin: normal color, no rash, warm/dry, well hydrated Medical Decision Making Diagnostic Impression: Primary Impression: Groin pain, chronic, left ER Course This patient has left groin pain. He underwent a thorough workup to include CT of the abdomen and pelvis. This showed no acute findings. He underwent a previous workup by [facility] where he underwent that same tests yesterday and these were also negative. He was tentatively diagnosed with urinary tract infection. He was placed on Keflex. CBC, CMP and urinalysis today are unremarkable. The patient reports discharge from his penis. Likely he has a sexually transmitted infection. He also has behaviors concerning for narcotic seeking. He appears to be hospital shopping. His behaviors are aggressive and demanding. He threatened to call the administration because I had not been in his room to attend to his pain over the past hour. He received Toradol IV. This patient does not have an acute medical condition that would require narcotics. He will not be receiving narcotics from myself at this facility. Of note, the patient's urine drug screen was positive for amphetamines and THC. He was given treatment for possible sexually transmitted infection with IM Rocephin and oral azithromycin. I will give him Motrin and Pyridium for his symptoms. He is given return precautions and follow-up instructions. Laboratory Tests Test 11/25/17 09:40 White Blood Count 6.6 K/UL (4.8-10.8) Red Blood Count 6.61 M/UL (4.70-6.10) H Hemoglobin 19.1 G/DL (14.2-18.0) *H Hematocrit 57.7 % (42.0-52.0) H Mean Corpuscular Volume 87 FL (80-99) Mean Corpuscular Hemoglobin 28.9 PG (27.0-31.0) Mean Corpuscular Hemoglobin Concent 33.0 G/DL (32.0-36.0) Red Cell Distribution Width 11.4 % (11.6-14.8) L Platelet Count 283 K/UL (150-450) Mean Platelet Volume 6.0 FL (6.5-10.1) L Neutrophils (%) (Auto) 51.7 % (45.0-75.0) Lymphocytes (%) (Auto) 31.0 % (20.0-45.0) Monocytes (%) (Auto) 13.6 % (1.0-10.0) H Eosinophils (%) (Auto) 2.5 % (0.0-3.0) Basophils (%) (Auto) 1.4 % (0.0-2.0) Urine Color Pale yellow Urine Appearance Clear Urine pH 7 (4.5-8.0) Urine Specific [place] 1.005 (1.005-1.035) Urine Protein 1+ (NEGATIVE) H Urine Glucose (UA) Negative (NEGATIVE) Urine Ketones Negative (NEGATIVE) Urine Blood 1+ (NEGATIVE) H Urine Nitrite Negative (NEGATIVE) Urine Bilirubin Negative (NEGATIVE) Urine Urobilinogen Normal MG/DL (0.0-1.0) Urine Leukocyte Esterase Negative (NEGATIVE) Urine RBC 0-2 /HPF (0 - 0) H Urine WBC 0 /HPF (0 - 0) Urine Squamous Epithelial Cells None /LPF (NONE/OCC) Urine Bacteria None /HPF (NONE) Sodium Level 138 MMOL/L (136-145) Potassium Level 4.4 MMOL/L (3.5-5.1) Chloride Level 102 MMOL/L (98-107) Carbon Dioxide Level 29 MMOL/L (21-32) Blood Urea Nitrogen 10 mg/dL (7-18) Creatinine 1.0 MG/DL (0.55-1.30) Estimate Glomerular Filtration Rate > 60 mL/min (>60) Glucose Level 94 MG/DL (74-106) Calcium Level 10.3 MG/DL (8.5-10.1) H Total Bilirubin 0.5 MG/DL (0.2-1.0) Aspartate Amino Transferase (AST) 43 U/L (15-37) H Alanine Aminotransferase (ALT) 56 U/L (12-78) Alkaline Phosphatase 105 U/L (46-116) Total Protein 8.4 G/DL (6.4-8.2) H Albumin 3.5 G/DL (3.4-5.0) Globulin 4.9 g/dL Albumin/Globulin Ratio 0.7 (1.0-2.7) L Lipase 135 U/L (73-393) Urine Opiates Screen Negative (NEGATIVE) Urine Barbiturates Screen Negative (NEGATIVE) Phencyclidine (PCP) Screen Negative (NEGATIVE) Urine Amphetamines Screen Positive (NEGATIVE) H Urine Benzodiazepines Screen Negative (NEGATIVE) Urine Cocaine Screen Negative (NEGATIVE) Urine Marijuana (THC) Screen Positive (NEGATIVE) H CT/MRI/US Diagnostic Results CT/MRI/US Diagnostic Results : Imaging Test Ordered: CT abd/pelvis Impression No acute findings. See official report and EMR. Last Vital Signs Date Time Temp Pulse Resp B/P (MAP) Pulse Ox O2 Delivery O2 Flow Rate FiO2 11/25/17 09:58 97.3 11/25/17 09:29 106 18 136/76 98 Room Air Disposition: HOME, SELF-CARE Condition: Stable Referrals: NOT CHOSEN IPA/,REFERRING (PCP) Omayra Bonilla DO Nov 25, 2017 10:13
[2017-11-25 10:23] LABS: BASOPHILS % (AUTO) 1.4 % (0.0-2.0); EOSINOPHILS % (AUTO) 2.5 % (0.0-3.0); HEMATOCRIT 57.7 % (42.0-52.0); MEAN CORPUSCULAR VOLUME 87 FL (80-99); MONOCYTES % (AUTO) 13.6 % (1.0-10.0); NEUTROPHILS % (AUTO) 51.7 % (45.0-75.0); PLATELET COUNT 283 K/UL (150-450); RED BLOOD COUNT 6.61 M/UL (4.70-6.10); RED CELL DISTRIBUTION WIDTH 11.4 % (11.6-14.8)
[2017-11-25 10:24] LABS: ALANINE AMINOTRANSFERASE 56 U/L (12-78); CHLORIDE 102 MMOL/L (98-107); POTASSIUM 4.4 MMOL/L (3.5-5.1); SODIUM 138 MMOL/L (136-145)
[2017-11-25 10:25] LABS: HEMOGLOBIN 19.1 G/DL (14.2-18.0)
[2017-11-25 10:27] LABS: WHITE BLOOD COUNT 6.6 K/UL (4.8-10.8)
[2017-11-25 10:40] LABS: ALBUMIN 3.5 G/DL (3.4-5.0); ALBUMIN/GLOBULIN RATIO 0.7 (1.0-2.7); ALKALINE PHOSPHATASE 105 U/L (46-116); ASPARTATE AMINO TRANSFERASE 43 U/L (15-37); BILIRUBIN,TOTAL 0.5 MG/DL (0.2-1.0); BLOOD UREA NITROGEN 10 mg/dL (7-18); CALCIUM 10.3 MG/DL (8.5-10.1); CARBON DIOXIDE 29 MMOL/L (21-32)
--- NOTE | 2017-11-25 11:53 | Diagnostic Imaging Report ---
EXAM: CT Abdomen and Pelvis With Intravenous Contrast CLINICAL HISTORY: ABD PAIN TECHNIQUE: Axial computed tomography images of the abdomen and pelvis with intravenous contrast. CTDI is 10.21 + 0.15 mGy and DLP is 560 mGy-cm. One or more of the following dose reduction techniques were used: automated exposure control, adjustment of the mA and/or kV according to patient size, use of iterative reconstruction technique. COMPARISON: No relevant prior studies available. FINDINGS: Lung bases: Unremarkable. ABDOMEN: Liver: Unremarkable. Gallbladder and bile ducts: No calcified stones. No ductal dilation. Pancreas: Unremarkable. Spleen: Unremarkable. Adrenals: Unremarkable. Kidneys and ureters: Unremarkable. No hydronephrosis. Stomach and bowel: No david mural thickening. Nonobstructive bowel gas pattern. PELVIS: Appendix: No findings to suggest acute appendicitis. Bladder: Moderate distention of the bladder. Reproductive: Unremarkable. ABDOMEN and PELVIS: Intraperitoneal space: Unremarkable. Bones/joints: No acute fracture. Soft tissues: Unremarkable. Vasculature: Unremarkable. No abdominal aortic aneurysm. Lymph nodes: No enlarged lymph nodes. IMPRESSION: No acute findings.
[2017-11-25] MEDS ORDERED: Lidocaine 1% MPF 10mg/ml 5ml INJ ONE (12:15)
[2017-11-25] MEDS ORDERED: Azithromycin 250mg tab ORAL ONE (12:15)
[2017-11-25] MEDS ORDERED: IBUPROFEN800 MG ORAL (12:34)
[2017-11-25] MEDS ORDERED: PHENAZOPYRIDIN100 MG ORAL (12:34)
[2017-11-25 12:38] VITALS: BP 128/72
[2017-11-25 12:39] VITALS: BP 128/72
== END 2017-11-25 12:39 | disposition home or self-care (01) ==
LOC: EMR 09:40
DX: R10.32 Left lower quadrant pain (principal); I10 Essential (primary) hypertension; J45.909 Unspecified asthma, uncomplicated
CPT/HCPCS: 36415; 74177; 80053; 80307; 81003; 83690; 85025; 96361; 96372; 96374; 99284; J0696; J1885; Q0144; Q9967

== ENCOUNTER 2018-05-13 15:47 | Emergency (ER) | payer MEDICAID, OTHER ==
[~2018-05-13] VITALS: Ht 165.1 cm; Wt 68.9 kg
[~2018-05-13 15:47] MED LIST changes: +IBUPROFEN800 MG ORAL; +PHENAZOPYRIDIN100 MG ORAL
[2018-05-13 16:00] VITALS: BP 130/68
--- NOTE | 2018-05-13 16:00 | NUR ---
ED Nurse Note: pt walked in to ER c/o buring sensation upon urination and pain 10/13. pt aao x4 and ambulatory. skin clean and intact. pt denied discharge or swelling or redness in penis area. pt calm and cooperative.
[2018-05-13] MEDS ORDERED: Ketorolac 30mg Inj IM ONE (16:30)
[2018-05-13 16:40] LABS: APPEARANCE,URINE CLEAR; BILIRUBIN, URINE NEGATIVE (NEGATIVE); COLOR,URINE PALE YELLOW; GLUCOSE, URINE (UA) NEGATIVE (NEGATIVE); KETONES,URINE NEGATIVE (NEGATIVE); LEUKOCYTE ESTERASE ,URINE NEGATIVE (NEGATIVE); NITRITE,URINE NEGATIVE (NEGATIVE); PH,URINE 6.5 (4.5-8.0); PROTEIN,URINE 1+ (NEGATIVE); UROBILINOGEN,URINE NORMAL MG/DL (0.0-1.0)
[2018-05-13] MEDS ORDERED: Fluconazole 100mg tab ORAL ONE (17:00)
--- NOTE | 2018-05-13 17:19 | Emergency Room Report ---
History of Present Illness General Chief Complaint: Male Urogenital Problems Source: Patient Present Illness HPI 47-year-old male patient presents the ER complaining of burning pain with urination for the past 4 days. Denies hematuria or penile discharge. Reports last sexual encounter was 4 days ago, states that he is protection. Also complaining of testicular swelling during this time, reports worse on the right side. Denies redness or erythema. Denies penile rash or lesions. Denies concern for STI. Also complaining of right calf pain. States Pain is been present for the past month. Denies recent travel. Denies injury or trauma. Denies taking blood thinner medications. Denies chest pain or shortness of breath. Denies fever. Denies flank pain. William hx of diabetes. Allergies: Coded Allergies: No Known Allergies (Unverified , 03/09/16) Patient History Past Medical History: see triage record Reviewed Nursing Documentation: PMH: Agreed; PSxH: Agreed Nursing Documentation-PMH Past Medical History: No History, Except For Hx Asthma: Yes Review of Systems All Other Systems: negative except mentioned in HPI Physical Exam Vital Signs Date Time Temp Pulse Resp B/P (MAP) Pulse Ox O2 Delivery O2 Flow Rate FiO2 05/13/18 15:56 98.1 101 20 122/78 96 Room Air Sp02 EP Interpretation: reviewed, normal General Appearance: well appearing, no apparent distress, alert, GCS 15, non- toxic Head: normocephalic, atraumatic Eyes: bilateral eye normal inspection, bilateral eye PERRL ENT: hearing grossly normal, normal pharynx, no angioedema, normal voice, uvula midline, moist mucus membranes Neck: full range of motion Respiratory: lungs clear, normal breath sounds, no rhonchi, no respiratory distress, no accessory muscle use, no wheezing, speaking full sentences Cardiovascular #1: regular rate, rhythm, no edema Cardiovascular #2: 2+ dorsalis pedis (R), 2+ dorsalis pedis (L) Genitourinary: no CVA tenderness, penis normal - Circumcised, scrotum normal, other - No bag of worms, no erythema, no edema Musculoskeletal: back normal, digits/nails normal, gait/station normal, normal range of motion, non-tender, no calf tenderness, Avinash's Sign negative, other - No erythema, no edema Neurologic: alert, oriented x3, responsive, motor strength/tone normal, sensory intact Psychiatric: mood/affect normal Skin: no rash Medical Decision Making PA Attestation Dr. Rubin is my supervising Physician whom patient management has been discussed with. Diagnostic Impression: Primary Impression: Yeast infection Additional Impressions: Dysuria Calf pain ER Course Pt. presents to the ED c/o dysuria and calf pain. Ddx considered but are not limited to testicular torsion, epididymitis, UTI, testicular cyst, varicocele, hydrocele, inguinal hernia, orchitis, DVT, contusion. Vital signs: are WNL, pt. is afebrile ER COURSE: Provided with pain medication in the ER. UA shows positive for yeast, provide with, as well as the ER, negative nitrites negative leukocyte esterase, low suspicion for UTI. Testicular US small hydroceles, advised to follow specialist. Patient reports he has appointment scheduled. Venous duplex ultrasound of right lower extremity negative for DVT. Advised patient follow-up with primary care provider for further evaluation and treatment. Denies acute injury or trauma, low suspicion for fracture, does not require x- ray at this time. Take Motrin for pain symptoms. ER precautions given. Advised patient on RICE. DISCHARGE: At this time pt. is stable for d/c to home. Will provide printed patient care instructions, and any necessary prescriptions. Care plan and follow up instructions have been discussed with the patient prior to discharge. Followup with flyer maker in 3 -5 days. Followup with urologist. Take medications as directed. Patient questions asked and answered. ER precautions given, patient instructed to return to ER immediately for any new or worsening of symptoms including but not limited to fever, nausea, vomiting, worsening of pain. - Please note that this Emergency Department Report was dictated using [employer] loader technology software, occasionally this can lead to erroneous entry secondary to interpretation by the dictation equipment. Labs Test 05/13/18 16:30 Urine Color Pale yellow Urine Appearance Clear Urine pH 6.5 (4.5-8.0) Urine Specific [place] 1.015 (1.005-1.035) Urine Protein 1+ (NEGATIVE) Urine Glucose (UA) Negative (NEGATIVE) Urine Ketones Negative (NEGATIVE) Urine Blood Negative (NEGATIVE) Urine Nitrite Negative (NEGATIVE) Urine Bilirubin Negative (NEGATIVE) Urine Urobilinogen Normal MG/DL (0.0-1.0) Urine Leukocyte Esterase Negative (NEGATIVE) Urine RBC 0 /HPF (0 - 0) Urine WBC 0-2 /HPF (0 - 0) Urine Squamous Epithelial Cells Occasional /LPF Urine Calcium Oxalate Crystals Moderate /LPF (NONE) Urine Bacteria Few /HPF (NONE) Urine Yeast Few /HPF (NONE) CT/MRI/US Diagnostic Results CT/MRI/US Diagnostic Results #1: Imaging Test Ordered: Venous duplex ultrasound right lower extremity Impression Negative for DVT CT/MRI/US Diagnostic Results #2: Imaging Test Ordered: Testicular ultrasound Impression Small hydroceles noted per recreation technician otherwise negative, no torsion. Last Vital Signs Date Time Temp Pulse Resp B/P (MAP) Pulse Ox O2 Delivery O2 Flow Rate FiO2 05/13/18 16:00 98.1 79 20 130/68 96 Room Air Status: improved Disposition: HOME, SELF-CARE Condition: Stable Scripts Phenazopyridine Hcl* (PYRIDIUM*) 100 Mg Tablet 100 MG ORAL THREE TIMES A DAY, #20 TAB Prov: Teofilo Bah 05/13/18 Patient Instructions: Dysuria, Genital Yeast Infection, Male, Hydrocele, Adult Additional Instructions: Followup with primary care provider in 3 -5 days. Follow-up with specialist. Discuss referral for calf pain. RICE: rest, ice, compression, elevation. Take medications as directed. Medication may turn urine orange. Patient questions asked and answered. ER precautions given, patient instructed to return to ER immediately for any new or worsening of symptoms. Teofilo Bah May 13, 2018 17:19
[2018-05-13] MEDS ORDERED: PHENAZOPYRIDIN100 MG ORAL (19:03)
[2018-05-13 19:10] VITALS: BP 128/67
--- NOTE | 2018-05-13 19:10 | NUR ---
ED Nurse Note: pt cleared to be d/c per ER provider, pt discharge/aftercare instruction provided w/ prescription, pt education done via discussion and handout, pt advised to follow up with pcp or return to ed if sx worsen or new sx develop, pt verbalized understanding and agrees with plan, vss, ambulatory w/ steady gait. wristband removed, left w/ all belongings.
--- NOTE | 2018-05-14 10:14 | Diagnostic Imaging Report ---
Indications: Reason For Exam: PAIN Technique: Grayscale and duplex images of the scrotum Comparison: none Findings:The right testicle measures 4.6cm in length. It demonstrates normal echogenicity. Normal Doppler flow. Normal epididymis. There is a small right hydrocele. The left testicle measures 4.3 cm in length. It demonstrates normal echogenicity and normal Doppler flow. A few small calcifications are seen within the testicular parenchyma. Normal epididymis. There is a trace hydrocele. Impression: No acute pathology. Negative for evidence of testicular torsion or inflammation Small bilateral hydroceles, right greater than left Small left testicular calcifications incidentally noted This agrees with the preliminary interpretation provided [facility].
--- NOTE | 2018-05-15 10:25 | Diagnostic Imaging Report ---
APPROVED REPORT CPT Code: 16897 Present Symptoms Lower Extremity Pain: RIGHT LEG: Venous imaging reveals a patent deep venous system. There is no evidence of thrombus within the femoral, popliteal or tibial segments. The greater saphenous vein is also within normal limits. Doppler indicates normal spontaneous flow within these segments.
== END 2018-05-13 19:15 | disposition home or self-care (01) ==
LOC: EMR 16:16
DX: B37.9 Candidiasis, unspecified (principal); R30.0 Dysuria; M79.661 Pain in right lower leg
CPT/HCPCS: 76870; 81003; 87086; 93971; 96372; 99284; J1885

== ENCOUNTER 2018-09-07 03:55 | Emergency (ER) | payer OTHER ==
[~2018-09-07] VITALS: Ht 165.1 cm; Wt 69.4 kg
[2018-09-07 04:30] VITALS: BP 120/73
--- NOTE | 2018-09-07 04:35 | NUR ---
ED Nurse Note: Patient walked in to ER c/o cough x 1 week. AAO x4, VSS at this time. skin is dry, warm to touch. Patient presented with nonlabored breathing, O2 sat uppon arrival was 99 % on RA.
[2018-09-07] MEDS ORDERED: Ipratropium 0.02% Inh Soln 2.5ml UD HHN ONE (04:45)
[2018-09-07] MEDS ORDERED: Albuterol ud Inhalation HHN ONE (04:45)
[2018-09-07] MEDS ORDERED: Guaifenesin/DM 10ml syrup ORAL PRN (04:45)
--- NOTE | 2018-09-07 04:48 | Emergency Room Report ---
History of Present Illness General Chief Complaint: Upper Respiratory Illness Source: Patient Present Illness HPI Patient presents with the almost 2 weeks of cough. He was seen at [facility] a week and a half ago and treated with albuterol and steroids. He states that they helped minimally but feels that he needs further treatment at this time. He has dyspnea on exertion. He denies fever or chills. He states that the cough is productive with green and yellow phlegm without any blood. He does have some mild chest tenderness with the cough. Denies any nausea, vomiting, diarrhea, dysuria. No rashes. He complains of achiness that is 5/10. 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 Nursing Documentation: PMH: Agreed; PSxH: Agreed Nursing Documentation-PMH Hx Asthma: Yes Review of Systems All Other Systems: negative except mentioned in HPI Physical Exam Vital Signs Date Time Temp Pulse Resp B/P (MAP) Pulse Ox O2 Delivery O2 Flow Rate FiO2 09/07/18 04:14 97.9 75 20 120/73 (89) 94 Room Air Sp02 EP Interpretation: reviewed, normal General Appearance: well appearing, no apparent distress, GCS 15 Head: normocephalic Eyes: bilateral eye normal inspection, bilateral eye PERRL, bilateral eye EOMI ENT: normal pharynx, moist mucus membranes Neck: supple Respiratory: wheezing - Posttussive, expiration Cardiovascular #1: regular rate, rhythm Cardiovascular #2: 2+ radial (R) Gastrointestinal: normal inspection, normal bowel sounds, non tender, no mass, non-distended Musculoskeletal: back normal, gait/station normal, normal range of motion, no calf tenderness Neurologic: alert, oriented x3, grossly normal Psychiatric: mood/affect normal Skin: no rash Medical Decision Making Diagnostic Impression: Primary Impression: Asthmatic bronchitis Qualified Codes: J45.41 - Moderate persistent asthma with (acute) exacerbation ER Course Patient presents with continued wheezing and productive cough after treatment with a azithromycin and prednisone. Differential includes viral cause, asthma exacerbation, reinfection with bacterial bronchitis versus pneumonia amongst others. Chest x-ray is indicated. The patient will be treated with breathing treatments and prednisone. Chest x-ray without infiltrate. Patient improved with treatment. Is insisting on antibiotics. Due to the fact he still has purulent sputum and bronchospasm antibiotics are indicated. Patient advised to follow-up with his physician. The patient is stable for outpatient observation and treatment. Chest X-Ray Diagnostic Results Chest X-Ray Diagnostic Results : Chest X-Ray Ordered: Yes # of Views/Limited/Complete: 1 View Indication: Other EP Interpretation: Yes Interpretation: no consolidation, no effusion, no pneumothorax Impression: No acute disease Electronically Signed by: Electronically signed by Jim Rey MD Last Vital Signs Date Time Temp Pulse Resp B/P (MAP) Pulse Ox O2 Delivery O2 Flow Rate FiO2 09/07/18 06:44 97.9 21 120/73 100 Room Air 21 09/07/18 05:14 79 Status: improved Disposition: HOME, SELF-CARE Condition: Improved Scripts Prednisone* (PREDNISONE*) 20 Mg Tablet 40 MG ORAL DAILY, #10 TAB Prov: Jim Rey MD 09/07/18 Guaifenesin/Dextromethorphan (Robitussin Cough-Chest Dm Liq) 237 Ml Liquid 5 ML PO Q6HR, #90 ML Prov: Jim Rey MD 09/07/18 Doxycycline Monohydrate* (DOXYCYCLINE MONOHYDRATE*) 100 Mg Capsule 100 MG ORAL Q12H, #14 CAP 0 Refills Prov: Jim Rey MD 09/07/18 Referrals: Huan POOLE,REFERRING (PCP) Jim Rey MD Sep 07, 2018 04:48
[2018-09-07] MEDS ORDERED: guaiFENesin 100mg/5ml Liq ud ONE ×2 (04:54→05:09)
[2018-09-07] MEDS ORDERED: Guaifenesin/DM 10ml syrup ORAL STA (05:00)
--- NOTE | 2018-09-07 05:10 | NUR ---
ED Nurse Note: unable to scan Guaifenesin Oral 5 mL. Medication was aknowledged without scaning it.
[2018-09-07] MEDS ORDERED: DOXYCYCLINE MO100 MG ORAL (06:27)
[2018-09-07] MEDS ORDERED: ROBITUSSIN COU237 M2 PO (06:27)
[2018-09-07] MEDS ORDERED: PREDNISONE20 MG ORAL (06:28)
[2018-09-07 06:44] VITALS: BP 120/73
--- NOTE | 2018-09-07 06:45 | NUR ---
ED Nurse Note: Pt cleared by health care Provider for discharge. DC instructions/prescription was given and explained to pt and verbalized understanding of teachings. All medical deviecs such as ID band removed. Pt is AAO x4, ambulatory and left with all personal belongings.
--- NOTE | 2018-09-07 13:00 | Diagnostic Imaging Report ---
Indication: Dyspnea Comparison: 08/30/2017 A single view chest radiograph was obtained. Findings: Cardiomediastinal appearance is within normal limits for age. The lungs are clear. Pulmonary vascularity is appropriate. The diaphragmatic contour is smooth and costophrenic angles are sharp. No pleural effusions are identified. The bones are unremarkable. Impression: No acute findings
== END 2018-09-07 06:46 | disposition home or self-care (01) ==
LOC: EMR 04:28
DX: J45.41 Moderate persistent asthma with (acute) exacerbation (principal)
CPT/HCPCS: 71045; 94640; 94664; 99284; J7512

== ENCOUNTER 2018-11-08 12:17 | Emergency (ER) | payer MEDICAID, OTHER ==
[~2018-11-08] VITALS: Ht 165.1 cm; Wt 69.4 kg
[~2018-11-08 12:17] MED LIST changes: +PREDNISONE20 MG ORAL; +ROBITUSSIN COU237 M2 PO
--- NOTE | 2018-11-08 12:20 | NUR ---
ED Nurse Note: Patient walked in to ER from home due to burning sensation to urinate. Patient alert and oriented x4 and ambulatory. skin clean and intact. calm and cooperative. no acute distress noted at this time. pt provided urine and it was sent to lab.
[2018-11-08 12:24] VITALS: BP 124/77
--- NOTE | 2018-11-08 12:36 | Emergency Room Report ---
History of Present Illness General Chief Complaint: Male Urogenital Problems Source: Patient, Medical Record Present Illness HPI 48-year-old male complaining of suprapubic pain and dysuria x1 week. Denies fever, vomiting, abdominal pain, flank pain. Denies penile discharge, penile rash, testicular pain. No current medications. Has not sought treatment for this problem. Good appetite. 2 female sexual partners in the last 6 months. Last sexual activity 2 weeks ago. Also complaining of hemorrhoid x1 year, no blood in stool. Allergies: Coded Allergies: No Known Allergies (Unverified , 03/09/16) Patient History Past Medical History: none Past Surgical History: other - Hernia surgery Social History: Denies: smoking, alcohol use, drug use Nursing Documentation-[facility] Past Medical History: No History, Except For Hx Asthma: Yes Review of Systems All Other Systems: negative except mentioned in HPI Physical Exam Vital Signs Date Time Temp Pulse Resp B/P (MAP) Pulse Ox O2 Delivery O2 Flow Rate FiO2 11/08/18 12:20 97.9 83 18 121/82 (95) 99 Room Air Sp02 EP Interpretation: reviewed, normal General Appearance: no apparent distress, alert, GCS 15, non-toxic Respiratory: chest non-tender, lungs clear, normal breath sounds, speaking full sentences Cardiovascular #1: regular rate, rhythm, no edema Gastrointestinal: normal bowel sounds, non tender, soft, non-distended, no guarding, no rebound Rectal: hemorrhoids - Small external hemorrhoid perirectal region, nontender, Randal Fernando RN commission clerk in room. Genitourinary: no CVA tenderness, penis normal, prostate normal, scrotum normal - Lucretia Fernando RN present in room, commission clerk Neurologic: alert, oriented x3, normal gait Skin: no rash, warm/dry Medical Decision Making PA Attestation This patient was seen under the direct supervision of Dr. Armendariz who directed all aspects of care and diagnostic interpretation. Reaction to Intervention: No change ER Course ED course HPI: Patient complaining of suprapubic pain and dysuria x1 week. Denies fever, vomiting, abdominal pain, flank pain. Patient well-appearing, vitals normal. Afebrile. Normal exam, Randal Fernando RN at [facility]. Denies fever. No CVA tenderness. Ddx: Urethritis, UTI, STD, hemorrhoid HPI & PE consistent with: Dysuria, hemorrhoid Orders/ Interventions: Urinalysis with reflex microscopy ordered. UA shows 1+ Leukocyte esterase, negative nitrite, RBC 0-2, WB 0-2. Patient given Rocephin 250 mg IM x1, azithromycin 1 g p.o. x1 for suspected STI. Disposition: Patient stable for discharge home. Patient given prescription for Anusol suppository. Increase oral hydration. In 2 to 3 days or return to ED if worsening symptoms, new symptoms or sudden change in condition. Please note that this Emergency Department Report was dictated using [employer] technology software, occasionally this can lead to erroneous entry secondary to interpretation by the dictation equipment. Laboratory Tests Test 11/08/18 12:30 Urine Color Pale yellow Urine Appearance Clear Urine pH 7 (4.5-8.0) Urine Specific [place] 1.015 (1.005-1.035) Urine Protein Negative (NEGATIVE) Urine Glucose (UA) Negative (NEGATIVE) Urine Ketones Negative (NEGATIVE) Urine Blood Negative (NEGATIVE) Urine Nitrite Negative (NEGATIVE) Urine Bilirubin Negative (NEGATIVE) Urine Urobilinogen Normal MG/DL (0.0-1.0) Urine Leukocyte Esterase 1+ (NEGATIVE) H Urine RBC 0 /HPF (0 - 0) Urine WBC 0-2 /HPF (0 - 0) Urine Squamous Epithelial Cells Occasional /LPF Urine Bacteria Occasional /HPF (NONE) Last Vital Signs Date Time Temp Pulse Resp B/P (MAP) Pulse Ox O2 Delivery O2 Flow Rate FiO2 11/08/18 12:24 97.9 71 18 124/77 99 Room Air Status: unchanged Disposition: HOME, SELF-CARE Condition: Stable Scripts Hydrocortisone Acetate* (ANUSOL-HC*) 25 Mg Supp.rect 1 SUPP RECTAL TWICE A DAY for 14 Days, #28 SUPP 0 Refills Prov: Nancy Lopez 11/08/18 Patient Instructions: Dysuria, Hemorrhoids, [id number] Additional Instructions: Take medications as directed. Follow up with a Primary Care Provider in 2-3 days, even if your symptoms have resolved. Nancy Lopez Nov 08, 2018 12:36
[2018-11-08 13:10] LABS: APPEARANCE,URINE CLEAR; BILIRUBIN, URINE NEGATIVE (NEGATIVE); COLOR,URINE PALE YELLOW; GLUCOSE, URINE (UA) NEGATIVE (NEGATIVE); KETONES,URINE NEGATIVE (NEGATIVE); LEUKOCYTE ESTERASE ,URINE 1+ (NEGATIVE); NITRITE,URINE NEGATIVE (NEGATIVE); PH,URINE 7 (4.5-8.0); PROTEIN,URINE NEGATIVE (NEGATIVE); UROBILINOGEN,URINE NORMAL MG/DL (0.0-1.0)
[2018-11-08] MEDS ORDERED: Lidocaine 1% MPF 10mg/ml 5ml INJ ONE (13:30)
[2018-11-08] MEDS ORDERED: Azithromycin 250mg tab ORAL ONE (13:30)
[2018-11-08] MEDS ORDERED: ANUSOL-HC25 MG RECTAL (13:31)
[2018-11-08] MEDS ORDERED: Azithromycin 250mg tab ONE (13:31)
[2018-11-08] MEDS ORDERED: Lidocaine 1% MPF 10mg/ml 5ml ONE (13:31)
[2018-11-08 13:42] VITALS: BP 126/74
== END 2018-11-08 13:40 | disposition home or self-care (01) ==
LOC: EMR 12:44
DX: R30.0 Dysuria (principal); K64.9 Unspecified hemorrhoids; J45.909 Unspecified asthma, uncomplicated
CPT/HCPCS: 81003; 96372; 96374; 99284; J0696; Q0144

== ENCOUNTER 2019-01-21 22:10 | Emergency (ER) | payer MEDICAID ==
[~2019-01-21] VITALS: Ht 165.1 cm; Wt 69.4 kg
[2019-01-21 22:30] VITALS: BP 119/69
--- NOTE | 2019-01-21 22:30 | NUR ---
ED Nurse Note: Patient not in waiting room, patient left without being seen
--- NOTE | 2019-01-21 23:35 | Emergency Room Report ---
History of Present Illness General Chief Complaint: Male Urogenital Problems Source: Patient Present Illness HPI Is a 48-year-old male who presents with chief complaint of dysuria. He was triage and when was called by nurse to bring back to the main ER, he did not respond to the left without being seen. I do not see this patient. Allergies: Coded Allergies: No Known Allergies (Unverified , 03/09/16) Patient History Past Medical History: see triage record, old chart reviewed Past Surgical History: none Pertinent Family History: none Social History: Denies: smoking Immunizations: other Reviewed Nursing Documentation: PMH: Agreed; PSxH: Agreed Nursing Documentation-PMH Past Medical History: No History, Except For Hx Asthma: Yes Physical Exam Vital Signs Date Time Temp Pulse Resp B/P (MAP) Pulse Ox O2 Delivery O2 Flow Rate FiO2 01/21/19 22:29 98.2 78 18 119/69 (86) 95 Room Air Medical Decision Making Diagnostic Impression: Primary Impression: Abnormal urogenital findings Last Vital Signs Date Time Temp Pulse Resp B/P (MAP) Pulse Ox O2 Delivery O2 Flow Rate FiO2 01/21/19 22:29 98.2 78 18 119/69 (86) 95 Room Air Status: unchanged Disposition: LEFT W/OUT BEING SEEN Condition: Stable [facility] Reji Rachel MD Jan 21, 2019 23:35
== END 2019-01-21 23:30 | disposition left against medical advice (07) ==
LOC: EMR 23:06
DX: R30.0 Dysuria (principal); Z53.21 Procedure and treatment not carried out due to patient leaving prior to being seen by health care provider

== ENCOUNTER 2019-01-23 02:27 | Emergency (ER) | payer MEDICAID ==
[~2019-01-23] VITALS: Ht 165.1 cm; Wt 69.4 kg
[2019-01-23 02:40] VITALS: BP 104/67
--- NOTE | 2019-01-23 02:40 | NUR ---
ED Nurse Note: Patient walked in to Er c/o unprotected sex. States wants to be checked up for STIs. AAO x4, VSS at this time.
--- NOTE | 2019-01-23 02:52 | Emergency Room Report ---
History of Present Illness General Chief Complaint: Male Urogenital Problems Source: Patient Present Illness HPI Disclaimer: Please note that this report is being documented using [employer] technology. This can lead to erroneous entry secondary to incorrect interpretation by the dictating instrument. HPI: 48-year-old male with no reported medical history presents for evaluation and treatment of trichomonas infection. He states his girlfriend tested positive for trichomonas several days ago and she told him to go get treated. He reports some intermittent dysuria over the past few days but denies any hematuria or discharge. Denies fevers, chills. Denies abdominal pain, vomiting or diarrhea. Denies pain in the testicles or other symptoms at this time. PMH: Denies PSH: Hernia repair Allergies: Denies Social Hx: Occasional marijuana use Allergies: Coded Allergies: No Known Allergies (Unverified , 03/09/16) Nursing Documentation-PMH Past Medical History: No Stated History Hx Asthma: Yes Review of Systems All Other Systems: negative except mentioned in HPI Physical Exam Vital Signs Date Time Temp Pulse Resp B/P (MAP) Pulse Ox O2 Delivery O2 Flow Rate FiO2 01/23/19 02:34 98.4 68 14 104/67 (79) 96 Room Air General: Awake and alert, no acute distress HEENT: NC/AT. EOMI. Resp: Normal work of breathing Abdomen: Soft, nontender, nondistended Skin: Intact. No abrasions, laceration or rash over the exposed skin MSK: Normal tone and bulk. Moving all extremities. No obvious deformity. Neuro: Awake and alert. Mentating appropriately Medical Decision Making Diagnostic Impression: Primary Impression: Exposure to trichomonas ER Course 48-year-old male presents for treatment of trichomonas infection. He was told by his girlfriend to get tested and he states that she had confirmatory testing and was treated for trichomonas infection several days ago. He reports some intermittent dysuria. We will treat with 2 g of Flagyl in the emergency department and discharged to follow-up with PMD/clinic. Discussed reasons to return to the emergency room as well as avoiding alcohol after taking Flagyl. He understands and agrees with this treatment plan will be discharged home. Last Vital Signs Date Time Temp Pulse Resp B/P (MAP) Pulse Ox O2 Delivery O2 Flow Rate FiO2 01/23/19 02:34 98.4 68 14 104/67 (79) 96 Room Air Disposition: HOME, SELF-CARE Condition: Stable Referrals: NON PHYSICIAN (PCP) [facility] Huan Hansen [facility] Patient Instructions: Trichomoniasis Additional Instructions: Your treated today in the emergency department with a one-time dose of antibiotics for trichomonas. Follow with your doctor or 1 of the doctors listed in your discharge paperwork for reevaluation next week. If you have continued symptoms or develop high fevers, discharge or difficulty urinating return to the emergency department for reevaluation. Do not drink any alcohol for at least 72 hours after taking this medication. Delbert Miguel MD Jan 23, 2019 02:52
[2019-01-23] MEDS ORDERED: metroNIDAZOLE 500mg tab ORAL ONE (03:00)
[2019-01-23 03:01] VITALS: BP 104/67
== END 2019-01-23 03:01 | disposition home or self-care (01) ==
LOC: EMR 02:42
DX: R30.0 Dysuria (principal); J45.909 Unspecified asthma, uncomplicated; Z20.2 Contact with and (suspected) exposure to infections with a predominantly sexual mode of transmission
CPT/HCPCS: 99282

== ENCOUNTER 2019-02-11 01:35 | Emergency (ER) | payer MEDICAID ==
[~2019-02-11] VITALS: Ht 165.1 cm; Wt 64.9 kg
--- NOTE | 2019-02-11 01:49 | NUR ---
ED Nurse Note: pt presents to ED c/o R sided neck and shoulder pain for the past couple days. pt denies any injury or trauma to the area. he rates the pain a 9/10 that worsens when he tries to move his head. pt states "something feels stuck." pt is also c/o burning with urination that he was seen here for a couple weeks ago. pt reports he was given a dose of abx in ED but has not been feeling better. Addendum: 02/11/19 at 0154 by LI pt reports taking ibuprofen at home without relief of neck and shoulder px
[2019-02-11 01:53] VITALS: BP 110/72
--- NOTE | 2019-02-11 02:28 | NUR ---
ED Nurse Note: pt appears to be comfortable, he is in RME. pt put the chair head down and reclined into a flattened position to be able to lay. he has his eyes closed
[2019-02-11] MEDS ORDERED: Lidocaine 1% MPF 10mg/ml 5ml INJ ONE (03:00)
[2019-02-11 03:13] VITALS: BP 115/80
--- NOTE | 2019-02-11 03:16 | Emergency Room Report ---
History of Present Illness General Chief Complaint: Neck Pain Source: Patient, Medical Record Present Illness HPI Patient presents with complaints of right-sided neck pain Reports that it hurts more when he moves his neck ongoing for the past 2 days Denies any fevers or chills denies any chest pain denies any trauma Denies any photophobia After initial evaluation patient also reports that he has been having some discomfort with urination feels that he still has an infection Allergies: Coded Allergies: No Known Allergies (Unverified , 03/09/16) Patient History Past Medical History: see triage record Reviewed Nursing Documentation: PMH: Agreed; PSxH: Agreed Nursing Documentation-PM Past Medical History: No History, Except For Hx Asthma: Yes Review of Systems All Other Systems: negative except mentioned in HPI Physical Exam Vital Signs Date Time Temp Pulse Resp B/P (MAP) Pulse Ox O2 Delivery O2 Flow Rate FiO2 02/11/19 01:45 97.3 80 18 110/72 (85) 98 Room Air Sp02 EP Interpretation: reviewed, normal General Appearance: well appearing, no apparent distress Head: normocephalic, atraumatic Eyes: bilateral eye PERRL, bilateral eye EOMI ENT: hearing grossly normal, EOM grossly intact Neck: other - Midline shows no step-offs no obvious meningismus, patient has a small palpable lymph node on the right posterior cervical region about 3 mm well -circumscribed Respiratory: lungs clear, no retraction, no accessory muscle use Cardiovascular #1: regular rate, rhythm Gastrointestinal: non tender, soft Musculoskeletal: normal inspection Neurologic: alert, oriented x3 Skin: no rash Lymphatic: no adenopathy Medical Decision Making Diagnostic Impression: Primary Impression: Neck pain ER Course Patient shows is along with exam consistent with lymphadenopathy Patient does not appear septic or toxic there was some question of gonorrhea/ Chlamydia contact and patient appears to have been given Flagyl here in the emergency room I did also dispense Rocephin IM Patient initially requesting pain medication and Motrin was offered Initially he reports that 'this does not work for me' At a later time patient reports that he will take the Motrin however he is not sure if he is allergic to it Patient appears comfortable at this time and I recommended close outpatient follow-up for further pain control Last Vital Signs Date Time Temp Pulse Resp B/P (MAP) Pulse Ox O2 Delivery O2 Flow Rate FiO2 02/11/19 01:53 97.3 82 18 110/72 98 Room Air Status: unchanged Disposition: HOME, SELF-CARE Condition: Stable Referrals: [facility],REFERRING (PCP) [facility] Huan Hansen [facility] Patient Instructions: Lymphadenopathy Additional Instructions: Patient is provided with the discharge instructions notified to follow up with primary doctor in the next 2-3 days otherwise return to the er with any worsening symptoms. As you have mentioned Motrin does not work well for your pain. Therefore it is recommended for you to follow-up with your primary physician for further pain control. Please note that this report is being documented using [employer] technology. This can lead to erroneous entry secondary to incorrect interpretation by the dictating instrument. Scottie Calderon DO Feb 11, 2019 03:16
--- NOTE | 2019-02-11 03:25 | NUR ---
ER DISCHARGE NOTE: Patient is cleared to be discharged per ERMD, pt is aox4, with stable vital signs. pt was given dc instructions, pt was able to verbalize understanding, pt id band removed without complications. pt is able to ambulate with steady gait. pt took all belongings, but refused to sign d/c paperwork.
[2019-03-03] MEDS ORDERED: CEPHALEXIN500 MG ORAL (22:14)
[2019-03-03] MEDS ORDERED: BACTRIM DS TAB1 EAC1 ORAL (22:14)
[2019-03-03] MEDS ORDERED: FAMOTIDINE20 MG ORAL (22:14)
[2019-03-03] MEDS ORDERED: ZOFRAN4 MG ORAL (22:14)
== END 2019-02-11 03:13 | disposition home or self-care (01) ==
LOC: EMR 02:35
DX: M54.2 Cervicalgia (principal)
CPT/HCPCS: 96372; 96374; J0696; Z7502; 99284

== ENCOUNTER 2020-04-05 22:26 | Emergency (ER) | payer MEDICAID, OTHER ==
[~2020-04-05] VITALS: Ht 165.1 cm; Wt 70.3 kg
[~2020-04-05 22:26] MED LIST changes: +CLINDAMYCIN HC150 MG ORAL; +FAMOTIDINE20 MG ORAL; +TYLENOL EXTRA500 MG ORAL; +ZOFRAN4 MG ORAL
--- NOTE | 2020-04-05 22:45 | NUR ---
ED Nurse Note: Recieved pt walk in from home, here with c/o left side / flank pain at 8/10 for 4 days, pt states he thinks its his kidneys due to having same s/s before, pt rates pain at 8/10, pt is ambulatory, no chest pain, no sob or labored breathing, pt assisted to bathroom for urine sample and to room, MD at bedside, will resume care as ordered.
--- NOTE | 2020-04-05 23:05 | Emergency Room Report ---
History of Present Illness General Chief Complaint: Pain Source: Patient Present Illness HPI Is a 49-year-old male with a history of asthma. He presents with chief complaint of kidney pain. Is been ongoing for a week. He points to his lower back/flank area. Pain radiates down his buttock and thigh area. Worse with movement. Better with certain position. Pain is 9 out of 10. Does have increased urination. No fever chills but no trauma. No incontinence of bowel or urine. No focal deficit. Patient also complained of a lump to his right upper arm by the axilla area. He said is been there for couple weeks. Some redness to that area. Not painful. No fever chills but no drainage. Allergies: Coded Allergies: SULFAMETHOXAZOLE (Verified Allergy, Unknown, 04/05/20) TRIMETHOPRIM (Verified Allergy, Unknown, 04/05/20) COVID-19 Screening Contact w/high risk pt: No Experienced COVID-19 symptoms?: No COVID-19 Testing performed EXCHANGE CLERK: No Patient History Past Medical History: see triage record, old chart reviewed, asthma Past Surgical History: none Pertinent Family History: none Social History: Denies: smoking Immunizations: other Reviewed Nursing Documentation: PMH: Agreed; PSxH: Agreed Nursing Documentation-PMH Hx Asthma: Yes Review of Systems Eye: Denies: eye pain, blurred vision ENT: Denies: ear pain, nose congestion, throat swelling Respiratory: Denies: cough, shortness of breath Cardiovascular: Denies: chest pain, palpitations Gastrointestinal: Denies: abdominal pain, diarrhea, nausea, vomiting Musculoskeletal: Reports: back pain; Denies: joint pain Skin: Denies: rash Neurological: Denies: headache, numbness Endocrine: Denies: increased thirst, increased urine Hematologic/Lymphatic: Denies: easy bruising All Other Systems: negative except mentioned in HPI Physical Exam Vital Signs Date Time Temp Pulse Resp B/P (MAP) Pulse Ox O2 Delivery O2 Flow Rate FiO2 04/05/20 22:36 97.9 91 22 131/88 (102) 94 Room Air Vitals normal Sp02 EP Interpretation: reviewed, normal General Appearance: well appearing, no apparent distress, alert Head: normocephalic, atraumatic Eyes: bilateral eye PERRL, bilateral eye EOMI ENT: hearing grossly normal, normal pharynx Neck: full range of motion, supple, no meningismus Respiratory: chest non-tender, lungs clear, normal breath sounds Cardiovascular #1: regular rate, rhythm, no murmur Gastrointestinal: normal bowel sounds, non tender, no mass, no organomegaly, no bruit, non-distended Musculoskeletal: normal range of motion, gait/station normal, tender - Left lower flank paraspinous area. No midline tenderness. No step-off. No CVA tenderness., other - Right upper extremity by the axilla, there is a 1 cm indurated area. Mild erythema. Psychiatric: mood/affect normal Procedures Incision and Drainage Incision and Drainage : Consent: Verbal Site: Right upper extremity Blade Size: 11 I & D Procedure: betadine prep Anesthesia: 1% Lidocaine Volume Anesthetic (ccs): 3 Patient Tolerated: Well Complications: None Progress Area cleaned with Betadine. Local anesthetic with 1% lidocaine. I made a 1 cm incision. There is no abscess but small amount of thick material consistent with sebaceous cyst. I remove the core and placed two interrupted 4-0 Prolene sutures. Medical Decision Making Diagnostic Impression: Primary Impression: Back pain Qualified Codes: M54.42 - Lumbago with sciatica, left side Additional Impression: Sebaceous cyst ER Course This patient presents with back pain. No evidence of cauda equina syndrome, spinal epidural abscess or neoplastic process. His pain is not consistent with kidney pain. No evidence of infection or kidney stone. He has a small sebaceous cyst that I removed. No evidence of any infection. Last Vital Signs Date Time Temp Pulse Resp B/P (MAP) Pulse Ox O2 Delivery O2 Flow Rate FiO2 04/05/20 22:36 97.9 91 22 131/88 (102) 94 Room Air Status: improved Disposition: HOME, SELF-CARE Condition: Stable Scripts Ibuprofen* (MOTRIN*) 600 Mg Tablet 600 MG ORAL Q6H PRN for For Pain, #30 TAB 0 Refills Prov: Reji Rachel MD 04/05/20 Hydrocodone/Acetaminophen 5-325* (HYDROCODONE/ACETAMINOPHEN 5-325*) 1 Each Tablet 1 TAB ORAL Q6H PRN for For Pain, #15 TAB 0 Refills Prov: Reji Rachel MD 04/05/20 Referrals: [facility],REFERR[facility] (PCP) Additional Instructions: Keep wound clean. Clean with hydroperoxide and apply antibiotic ointment. Sutures out in 7 days. Follow-up with your doctor in 7 days. Return if worse. Reji Rachel MD Apr 05, 2020 23:05
[2020-04-05 23:07] LABS: APPEARANCE,URINE SLIGHTLY CLOUDY; BILIRUBIN, URINE NEGATIVE (NEGATIVE); COLOR,URINE PALE YELLOW; GLUCOSE, URINE (UA) NEGATIVE (NEGATIVE); KETONES,URINE NEGATIVE (NEGATIVE); LEUKOCYTE ESTERASE ,URINE NEGATIVE (NEGATIVE); NITRITE,URINE NEGATIVE (NEGATIVE); PH,URINE 8 (4.5-8.0); PROTEIN,URINE NEGATIVE (NEGATIVE); UROBILINOGEN,URINE NORMAL MG/DL (0.0-1.0)
[2020-04-05] MEDS ORDERED: HYDROcodone/Acetamin 5/325 tab ORAL ONE (23:15)
[2020-04-05] MEDS ORDERED: HYDROCODON-ACE1 EA15 ORAL (23:41)
[2020-04-05] MEDS ORDERED: IBUPROFEN600 M1 ORAL (23:41)
[2020-04-05 23:45] VITALS: BP 129/81
[2020-04-05 23:55] VITALS: BP 129/81
--- NOTE | 2020-04-05 23:55 | NUR ---
ER DISCHARGE NOTE: Patient is cleared to be discharged per ERMD, pt is aox4, on room air, with stable vital signs. pt was given dc and prescription instructions, pt was able to verbalize understanding, pt id band removed without complications. pt is able to ambulate with steady gait. pt took all belongings.
== END 2020-04-05 23:56 | disposition home or self-care (01) ==
LOC: EMR 22:37
DX: M54.42 Lumbago with sciatica, left side (principal); L72.3 Sebaceous cyst; J45.909 Unspecified asthma, uncomplicated; Z88.2 Allergy status to sulfonamides; Z88.1 Allergy status to other antibiotic agents
CPT/HCPCS: 10060; 81003; Z7502; 99283

== ENCOUNTER 2020-04-13 00:28 | Emergency (ER) | payer OTHER ==
[~2020-04-13] VITALS: Ht 165.1 cm; Wt 71.2 kg
[~2020-04-13 00:28] MED LIST changes: +HYDROCODON-ACE1 EA15 ORAL; +IBUPROFEN600 M1 ORAL
[2020-04-13 00:35] VITALS: BP 120/77
--- NOTE | 2020-04-13 00:36 | NUR ---
ED Nurse Note: Patient walked into ED c/o suture removal located on patients right upper back, patient denies any pain located on suture site however reports of right arm pain, patient is alert and oriented x4, ambulatory with a steady gait, VSS.
--- NOTE | 2020-04-13 00:46 | Emergency Room Report ---
History of Present Illness General Chief Complaint: Wound Recheck/Suture Removal Source: Patient Present Illness HPI This is a 49-year-old male with no significant past medical history. He presents with chief complaint of suture removal. I saw him few days ago. He had a sebaceous cyst by the right axilla area. I removed it and put 2 sutures in. He is here for recheck and suture removal. Denies any fever chills but denies any drainage but no redness. No other complaint. 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: No Patient History Past Medical History: see triage record, old chart reviewed Past Surgical History: none Pertinent Family History: none Social History: Denies: smoking Immunizations: other Reviewed Nursing Documentation: PMH: Agreed; PSxH: Agreed Nursing Documentation-PMH Past Medical History: No History, Except For Hx Asthma: Yes Review of Systems Eye: Denies: eye pain, blurred vision ENT: Denies: ear pain, nose congestion, throat swelling Respiratory: Denies: cough, shortness of breath Cardiovascular: Denies: chest pain, palpitations Gastrointestinal: Denies: abdominal pain, diarrhea, nausea, vomiting Musculoskeletal: Denies: back pain, joint pain Skin: Denies: rash Neurological: Denies: headache, numbness Endocrine: Denies: increased thirst, increased urine Hematologic/Lymphatic: Denies: easy bruising All Other Systems: negative except mentioned in HPI Physical Exam Vital Signs Date Time Temp Pulse Resp B/P (MAP) Pulse Ox O2 Delivery O2 Flow Rate FiO2 04/13/20 00:32 98.2 80 18 120/77 (91) 94 Room Air Vitals normal Sp02 EP Interpretation: reviewed, normal General Appearance: well appearing, no apparent distress, alert Head: normocephalic, atraumatic Eyes: bilateral eye PERRL, bilateral eye EOMI ENT: hearing grossly normal, normal pharynx Neck: full range of motion, supple, no meningismus Respiratory: chest non-tender, lungs clear, normal breath sounds Cardiovascular #1: regular rate, rhythm, no murmur Gastrointestinal: normal bowel sounds, non tender, no mass, no organomegaly, no bruit, non-distended Musculoskeletal: back normal, normal range of motion, gait/station normal, other - right upper arm by axilla area: Wound showed minimal erythema. No drainage. Psychiatric: mood/affect normal Procedures Additional Procedure Procedure Narrative Procedure: Suture removal Indication: Laceration repair Description: I remove the 2 sutures without any problem. Dressing placed. Medical Decision Making Diagnostic Impression: Primary Impression: Encounter for removal of sutures ER Course Here for suture removal. No infection. Will discharge home. Last Vital Signs Date Time Temp Pulse Resp B/P (MAP) Pulse Ox O2 Delivery O2 Flow Rate FiO2 04/13/20 00:35 98.2 82 18 120/77 94 Room Air Status: improved Disposition: HOME, SELF-CARE Condition: Stable Referrals: [facility],REFERR[facility] (PCP) Patient Instructions: Wound Check Additional Instructions: Wound clean. Clean with hydroperoxide and apply antibiotic ointment. Follow-up with your doctor in 7 days but return if worse. Reji Rachel MD Apr 13, 2020 00:46
[2020-04-13 00:47] VITALS: BP 115/72
--- NOTE | 2020-04-13 00:48 | NUR ---
ER DISCHARGE NOTE: Patient is cleared to be discharged per ERMD, pt is aox4, on room air, with stable vital signs. pt was given dc instructions, pt was able to verbalize understanding, pt id band removed without complications. pt is able to ambulate with steady gait. pt took all belongings.
== END 2020-04-13 00:45 | disposition home or self-care (01) ==
LOC: EMR 00:42
DX: Z48.02 Encounter for removal of sutures (principal); Z88.2 Allergy status to sulfonamides; Z88.8 Allergy status to other drugs, medicaments and biological substances
CPT/HCPCS: 99281

== ENCOUNTER 2020-05-23 15:44 | Emergency (ER) | payer OTHER ==
[~2020-05-23] VITALS: Ht 167.6 cm; Wt 74.8 kg
[2020-05-23] MEDS ORDERED: CEPHALEXIN500 MG ORAL (16:02)
--- NOTE | 2020-05-23 16:06 | Emergency Room Report ---
History of Present Illness General Chief Complaint: Facial swelling Source: Patient Present Illness HPI Disclaimer: Please note that this report is being documented using [employer] technology. This can lead to erroneous entry secondary to incorrect interpretation by the dictating instrument. HPI: 49-year-old male presents for evaluation of swollen painful nose. Patient states he has been experiencing redness, sensitivity and warmth over the skin of the tip of the nose. He is moving into a new apartment and believes he scratched it against something a couple days ago. Denies significant nasal congestion. Denies fluctuant mass. Denies direct injury to the nares. Denies bleeding. Maintain sense of smell and taste. Denies fever or chills. No other complaints at this time. PMH: Reviewed PSH: Reviewed Allergies: Bactrim Social Hx: Reviewed Allergies: Coded Allergies: SULFAMETHOXAZOLE (Verified Allergy, Unknown, 04/05/20) TRIMETHOPRIM (Verified Allergy, Unknown, 04/05/20) COVID-19 Screening Contact w/high risk pt: No Experienced COVID-19 symptoms?: No Nursing Documentation-PMH Hx Asthma: Yes Review of Systems All Other Systems: negative except mentioned in HPI Physical Exam General: Awake and alert, no acute distress HEENT: NC/AT. EOMI. PERRLA. No scleral injection or periorbital edema. Nose in anatomic position without deformity. There is redness and tenderness over the tip of the nose without overlying skin breakdown, ulcerations, bleeding or drainage. No fluctuant masses. Slight irritation of the nasal turbines on the right nares. Resp: Normal work of breathing Skin: Intact. No abrasions, laceration or rash over the exposed skin MSK: Normal tone and bulk. Moving all extremities. No obvious deformity. Neuro: Awake and alert. Mentating appropriately Medical Decision Making Diagnostic Impression: Primary Impression: Facial cellulitis ER Course 49-year-old male presents with pain and mild swelling over the tip of the nose. Most consistent with a superficial cellulitis. No evidence of deep space abscess. Will start on Keflex and discussed strict return precautions. No difficulty breathing or signs of deep space infection at this time. Stable for outpatient follow-up. He understands and agrees with this treatment plan. Disposition: HOME, SELF-CARE Condition: Stable Scripts Cephalexin* (KEFLEX*) 500 Mg Capsule 500 MG ORAL EVERY 6 HOURS for 7 Days, #28 CAP Prov: Lamont,Delbert MD 05/23/20 Referrals: [facility] Huan Canseco. [facility] Patient Instructions: Cellulitis Additional Instructions: Please follow-up with your primary care doctor in the next 1 to 3 days to discuss this emergency department visit and for reevaluation. If you have any new or worsening symptoms please return to the emergency department for reevaluation. Please note that this report is being documented using [employer] technology. This can lead to erroneous entry secondary to incorrect interpretation by the dictating instrument. Delbert Miguel MD May 23, 2020 16:05
[2020-05-23 16:07] VITALS: BP 126/70
== END 2020-05-23 16:41 | disposition home or self-care (01) ==
LOC: EMR 16:07
DX: J34.0 Abscess, furuncle and carbuncle of nose (principal); Z88.2 Allergy status to sulfonamides; Z88.8 Allergy status to other drugs, medicaments and biological substances
CPT/HCPCS: 99282